=== PATIENT | male | born 1970 | race Two or more races ===

== ENCOUNTER 2017-03-25 23:45 | Inpatient (IN) | payer OTHER ==
[~2017-03-25] VITALS: Ht 180.3 cm; Wt 122.5 kg
[~2017-03-25 23:45] MED LIST: AMARYL; GLUCOPHAGE XR750 MG; LASIX40 MG
[2017-03-26] MEDS ORDERED: [UNRECOGNIZED DRUG - OTHER] (00:34)
[2017-04-02] MEDS ORDERED: LASIX40 MG PO (12:09)
[2017-04-02] MEDS ORDERED: ULTRA FLORA PL1 EACH PO (12:09)
[2017-04-02] MEDS ORDERED: Lantus 1000 UNITS/10 SUBCUTANEO (12:09)
[2017-04-02] MEDS ORDERED: HumaLOG 100 UNIT/1 M SUBCUTANEO (12:09)
[2017-04-02] MEDS ORDERED: CEFDINIR300 MG PO (12:09)
== END 2017-04-02 13:59 | disposition home or self-care (01) | DRG 603 ==
LOC: ER 23:45 → MEDI 03-26 12:12 → SEC-K 03-26 12:12 → MEDI 03-27 12:34
DX: L03.115 Cellulitis of right lower limb (principal); L97.818 Non-pressure chronic ulcer of other part of right lower leg with other specified severity; E11.65 Type 2 diabetes mellitus with hyperglycemia; E66.01 Morbid (severe) obesity due to excess calories; G47.33 Obstructive sleep apnea (adult) (pediatric); E11.22 Type 2 diabetes mellitus with diabetic chronic kidney disease; I12.9 Hypertensive chronic kidney disease with stage 1 through stage 4 chronic kidney disease, or unspecified chronic kidney disease; N18.3 Chronic kidney disease, stage 3 (moderate); S80.811A Abrasion, right lower leg, initial encounter; X58.XXXA Exposure to other specified factors, initial encounter; Y93.89 Activity, other specified; Y92.89 Other specified places as the place of occurrence of the external cause; Y99.8 Other external cause status

== ENCOUNTER 2017-07-03 22:22 | Inpatient (IN) | payer OTHER ==
[~2017-07-03] VITALS: Ht 180.3 cm; Wt 115.7 kg
[~2017-07-03 22:22] MED LIST changes: +ATORVASTATIN CA10 MG PO; +BACTRIM DS TAB1 EACH PO; +CEFDINIR300 MG PO; +CYMBALTA60 MG PO; +HUMALOG100 UNIT/1 SUBCUTANEO; +HumaLOG 100 UNIT/1 M SUBCUTANEO; +INTESTINEX680 M1 PO; +INVOKANA300 MG PO; +LANTUS SOL100 UNIT/1 SUBCUTANEO; +LASIX40 MG PO; +Lantus 1000 UNITS/10 SUBCUTANEO; +METFORMIN HCL500 MG PO; +ULTRA FLORA PL1 EACH PO; +[UNRECOGNIZED DRUG - OTHER]
[2017-07-14] MEDS ORDERED: HUMALOG100 UNIT/1 SUBCUTANEO (13:20)
[2017-07-14] MEDS ORDERED: CYMBALTA60 MG PO (13:20)
[2017-07-14] MEDS ORDERED: INTESTINEX680 M1 PO (13:20)
[2017-07-14] MEDS ORDERED: Lantus 1000 UNITS/10 SUBCUTANEO (13:20)
[2017-07-14] MEDS ORDERED: JARDIANCE25 MG PO (13:20)
[2017-07-14] MEDS ORDERED: LANTUS SOL100 UNIT/1 SUBCUTANEO (13:20)
[2017-07-14] MEDS ORDERED: METRONIDAZ500 MG/100 IV (13:20)
[2017-07-14] MEDS ORDERED: LASIX40 MG PO (13:20)
[2017-07-14] MEDS ORDERED: CEFTRIAXONE2 GM IV (13:20)
[2017-07-14] MEDS ORDERED: ATORVASTATIN CA10 MG PO (13:20)
[2017-07-14] MEDS ORDERED: HumaLOG 100 UNIT/1 M SUBCUTANEO (13:20)
== END 2017-07-14 18:26 | disposition home or self-care (01) | DRG 41 ==
LOC: ER 22:22 → MEDJ 07-04 11:53
PROC: CP1Z1ZZ Planar Nuclear Medicine Imaging of Musculoskeletal System, All using Technetium 99m (Tc-99m) (ICD-10-PCS; 2017-07-04)
PROC: 02HV33Z Insertion of Infusion Device into Superior Vena Cava, Percutaneous Approach (ICD-10-PCS; 2017-07-04)
PROC: 8E0ZXY6 Isolation (ICD-10-PCS; 2017-07-04)
PROC: 0JBQ0ZZ Excision of Right Foot Subcutaneous Tissue and Fascia, Open Approach (ICD-10-PCS; principal; 2017-07-07)
PROC: BQ3 Imaging, Non-Axial Lower Bones, Magnetic Resonance Imaging (MRI) (ICD-10-PCS; 2017-07-08)
DX: E11.42 Type 2 diabetes mellitus with diabetic polyneuropathy (principal); L97.518 Non-pressure chronic ulcer of other part of right foot with other specified severity; E11.621 Type 2 diabetes mellitus with foot ulcer; E11.65 Type 2 diabetes mellitus with hyperglycemia; L03.031 Cellulitis of right toe; E66.01 Morbid (severe) obesity due to excess calories; G47.33 Obstructive sleep apnea (adult) (pediatric); E78.00 Pure hypercholesterolemia, unspecified; E11.22 Type 2 diabetes mellitus with diabetic chronic kidney disease; N18.3 Chronic kidney disease, stage 3 (moderate); Z98.84 Bariatric surgery status; B96.6 Bacteroides fragilis [B. fragilis] as the cause of diseases classified elsewhere
CPT/HCPCS: 73722

== ENCOUNTER 2017-09-02 17:54 | Inpatient (IN) | payer OTHER ==
[~2017-09-02] VITALS: Ht 175.3 cm; Wt 127.0 kg
[~2017-09-02 17:54] MED LIST changes: +CEFTRIAXONE2 GM IV; +JARDIANCE25 MG PO; +METRONIDAZ500 MG/100 IV
[2017-10-13] MEDS ORDERED: LEVAQUIN750 MG PO (12:01)
[2017-10-13] MEDS ORDERED: JARDIANCE25 MG PO (12:01)
[2017-10-13] MEDS ORDERED: INTESTINEX680 M1 PO (12:01)
[2017-10-13] MEDS ORDERED: METFORMIN HCL500 MG PO (12:01)
[2017-10-13] MEDS ORDERED: GABAPENTIN100 MG PO (12:01)
[2017-10-13] MEDS ORDERED: LASIX40 MG PO (12:01)
[2017-10-13] MEDS ORDERED: HUMALOG100 UNIT/1 SUBCUTANEO (12:01)
[2017-10-13] MEDS ORDERED: ATORVASTATIN CA10 MG PO (12:01)
[2017-10-13] MEDS ORDERED: LANTUS SOL100 UNIT/1 SUBCUTANEO (12:01)
[2017-10-13] MEDS ORDERED: NEURONTIN300 MG PO (12:01)
== END 2017-10-13 13:48 | disposition home or self-care (01) | DRG 41 ==
LOC: ER 17:54 → SEC-K 20:13 → MEDI 20:13
PROVIDERS: Specialist
PROC: 0Y6R0Z0 Detachment at Right 2nd Toe, Complete, Open Approach (ICD-10-PCS; principal; 2017-09-03 15:00)
PROC: B54NZZZ Ultrasonography of Left Upper Extremity Veins (ICD-10-PCS; 2017-09-09)
PROC: 05H433Z Insertion of Infusion Device into Left Innominate Vein, Percutaneous Approach (ICD-10-PCS; 2017-09-09)
PROC: B54DZZZ Ultrasonography of Bilateral Lower Extremity Veins (ICD-10-PCS; 2017-09-12)
PROC: B44HZZZ Ultrasonography of Bilateral Lower Extremity Arteries (ICD-10-PCS; 2017-09-12)
PROC: 0JBQ0ZZ Excision of Right Foot Subcutaneous Tissue and Fascia, Open Approach (ICD-10-PCS; 2017-09-16)
DX: E11.42 Type 2 diabetes mellitus with diabetic polyneuropathy (principal); M86.171 Other acute osteomyelitis, right ankle and foot; E11.52 Type 2 diabetes mellitus with diabetic peripheral angiopathy with gangrene; I96 Gangrene, not elsewhere classified; L97.518 Non-pressure chronic ulcer of other part of right foot with other specified severity; E11.69 Type 2 diabetes mellitus with other specified complication; G47.33 Obstructive sleep apnea (adult) (pediatric); E66.01 Morbid (severe) obesity due to excess calories; E78.00 Pure hypercholesterolemia, unspecified; E11.65 Type 2 diabetes mellitus with hyperglycemia; E11.22 Type 2 diabetes mellitus with diabetic chronic kidney disease; N18.3 Chronic kidney disease, stage 3 (moderate); I12.9 Hypertensive chronic kidney disease with stage 1 through stage 4 chronic kidney disease, or unspecified chronic kidney disease; E11.621 Type 2 diabetes mellitus with foot ulcer; B95.1 Streptococcus, group B, as the cause of diseases classified elsewhere; B95.61 Methicillin susceptible Staphylococcus aureus infection as the cause of diseases classified elsewhere; I80.8 Phlebitis and thrombophlebitis of other sites; I87.2 Venous insufficiency (chronic) (peripheral)

== ENCOUNTER 2018-03-27 19:16 | Inpatient (IN) | payer OTHER ==
[~2018-03-27] VITALS: Ht 180.3 cm; Wt 5.0 kg
[~2018-03-27 19:16] MED LIST changes: +GABAPENTIN100 MG PO; +LEVAQUIN750 MG PO; +NEURONTIN300 MG PO
--- NOTE | 2018-03-27 19:38 | NUR ---
SE LLAMA PTE PARA S/V Y NO RESPONDE.
[2018-03-27] MEDS ORDERED: FORTAMET1000 MG (19:50)
--- NOTE | 2018-03-27 19:51 | NUR ---
SE RECIBE PTE EL CUAL LLEGA ER POR REFERIDO MEDICO DE DR. MYRNA GONZALEZ, YA QUE PTE PRESENTA CELLULITIS EN PIERNA IZQ LA MISMA SE ENCUENTRA GAURAV, TIBIA AL TACTO CON SECRECIONES.
[2018-04-20] MEDS ORDERED: CLOTRIMAZOLE15 GM TOP (12:09)
[2018-04-20] MEDS ORDERED: METFORMIN HCL1000 MG PO (12:09)
[2018-04-20] MEDS ORDERED: INTESTINEX680 M1 PO (12:09)
[2018-04-20] MEDS ORDERED: GABAPENTIN100 MG PO (12:09)
[2018-04-20] MEDS ORDERED: LASIX40 MG PO (12:09)
[2018-04-20] MEDS ORDERED: JARDIANCE25 MG PO (12:09)
[2018-04-20] MEDS ORDERED: ATORVASTATIN CA10 MG PO (12:09)
[2018-04-20] MEDS ORDERED: NEURONTIN300 MG PO (12:09)
[2018-04-20] MEDS ORDERED: LOSARTAN POTASS25 MG PO (12:09)
== END 2018-04-21 16:12 | disposition home health service (06) | DRG 623 ==
LOC: ER 19:16 → MEDI 03-28 15:09 → MEDJ 04-16 21:17
PROVIDERS: ADMIT Internal Medicine Geriatric Medicine
PROC: BQ3MZZZ Magnetic Resonance Imaging (MRI) of Left Foot (ICD-10-PCS; 2018-03-29)
PROC: B54DZZZ Ultrasonography of Bilateral Lower Extremity Veins (ICD-10-PCS; 2018-03-29)
PROC: 02HV33Z Insertion of Infusion Device into Superior Vena Cava, Percutaneous Approach (ICD-10-PCS; 2018-03-29)
PROC: 0JBR0ZZ Excision of Left Foot Subcutaneous Tissue and Fascia, Open Approach (ICD-10-PCS; principal; 2018-04-01)
PROC: B34JZZZ Ultrasonography of Left Upper Extremity Arteries (ICD-10-PCS; 2018-04-04)
DX: E11.621 Type 2 diabetes mellitus with foot ulcer (principal); M86.171 Other acute osteomyelitis, right ankle and foot; B37.89 Other sites of candidiasis; E11.628 Type 2 diabetes mellitus with other skin complications; E11.65 Type 2 diabetes mellitus with hyperglycemia; L03.032 Cellulitis of left toe; Z79.4 Long term (current) use of insulin; E11.40 Type 2 diabetes mellitus with diabetic neuropathy, unspecified; I82.813 Embolism and thrombosis of superficial veins of lower extremities, bilateral; Z79.01 Long term (current) use of anticoagulants; E78.00 Pure hypercholesterolemia, unspecified; E11.22 Type 2 diabetes mellitus with diabetic chronic kidney disease; I12.9 Hypertensive chronic kidney disease with stage 1 through stage 4 chronic kidney disease, or unspecified chronic kidney disease; N18.3 Chronic kidney disease, stage 3 (moderate); N17.8 Other acute kidney failure; G47.33 Obstructive sleep apnea (adult) (pediatric); E66.01 Morbid (severe) obesity due to excess calories; Z99.81 Dependence on supplemental oxygen; Z98.84 Bariatric surgery status; L97.521 Non-pressure chronic ulcer of other part of left foot limited to breakdown of skin; I11.9 Hypertensive heart disease without heart failure

== ENCOUNTER 2018-05-07 20:15 | Emergency (ER) | payer OTHER ==
[~2018-05-07] VITALS: Ht 180.3 cm; Wt 117.9 kg
[~2018-05-07 20:15] MED LIST changes: +CLOTRIMAZOLE15 GM TOP; +FORTAMET1000 MG; +LOSARTAN POTASS25 MG PO; +METFORMIN HCL1000 MG PO
== END 2018-05-07 21:39 | disposition home or self-care (01) ==
LOC: ER 20:15
DX: T82.598A Other mechanical complication of other cardiac and vascular devices and implants, initial encounter (principal)

== ENCOUNTER 2018-05-08 11:27 | Emergency (ER) | payer OTHER ==
[~2018-05-08] VITALS: Ht 180.3 cm; Wt 117.9 kg
== END 2018-05-08 13:24 | disposition home or self-care (01) ==
LOC: ER 11:27
DX: T82.598A Other mechanical complication of other cardiac and vascular devices and implants, initial encounter (principal)

== ENCOUNTER 2019-02-22 16:14 | Inpatient (IN) | payer OTHER ==
[~2019-02-22] VITALS: Ht 180.3 cm; Wt 117.9 kg
--- NOTE | 2019-02-22 16:29 | NUR ---
SE RECIBE PTE AMBULANDO CON DIFICULTAD, ALERTA Y ORIENTADO X3 QUIEN ES REFERIDO POR DR. NORRIS GONZALEZ POR ULCERA EN PIE L+. SE UBICA A PTE EN SECCION K.
[2019-03-12] MEDS ORDERED: CLOTRIMAZOLE15 GM TOP (16:32)
[2019-03-12] MEDS ORDERED: INTESTINEX680 M1 PO (16:32)
[2019-03-12] MEDS ORDERED: ATORVASTATIN CA10 MG PO (16:32)
[2019-03-12] MEDS ORDERED: GABAPENTIN800 MG PO (16:32)
[2019-03-12] MEDS ORDERED: JARDIANCE25 MG PO (16:32)
[2019-03-12] MEDS ORDERED: METFORMIN HCL1000 MG PO (16:32)
[2019-03-12] MEDS ORDERED: GABAPENTIN300 MG PO (16:32)
[2019-03-12] MEDS ORDERED: HUMALOG100 UNIT/1 SUBCUTANEO (16:32)
[2019-03-12] MEDS ORDERED: LASIX40 MG PO (16:32)
[2019-03-12] MEDS ORDERED: LOSARTAN POTASS25 MG PO (16:32)
== END 2019-03-17 20:03 | disposition home or self-care (01) | DRG 623 ==
LOC: ER 16:14 → SEC-K 18:33 → MEDJ 19:13
PROVIDERS: ADMIT Internal Medicine Geriatric Medicine
PROC: BQ3MZZZ Magnetic Resonance Imaging (MRI) of Left Foot (ICD-10-PCS; 2019-02-22)
PROC: 0JBR0ZZ Excision of Left Foot Subcutaneous Tissue and Fascia, Open Approach (ICD-10-PCS; principal; 2019-02-23)
PROC: 05HB33Z Insertion of Infusion Device into Right Basilic Vein, Percutaneous Approach (ICD-10-PCS; 2019-02-23)
PROC: 8E0ZXY6 Isolation (ICD-10-PCS; 2019-02-24)
PROC: B246ZZZ Ultrasonography of Right and Left Heart (ICD-10-PCS; 2019-02-26)
PROC: 0JBR0ZZ Excision of Left Foot Subcutaneous Tissue and Fascia, Open Approach (ICD-10-PCS; 2019-03-03)
PROC: 0JBR0ZZ Excision of Left Foot Subcutaneous Tissue and Fascia, Open Approach (ICD-10-PCS; 2019-03-10)
DX: E11.621 Type 2 diabetes mellitus with foot ulcer (principal); L97.528 Non-pressure chronic ulcer of other part of left foot with other specified severity; L03.116 Cellulitis of left lower limb; L02.612 Cutaneous abscess of left foot; M86.8X7 Other osteomyelitis, ankle and foot; E11.42 Type 2 diabetes mellitus with diabetic polyneuropathy; E66.01 Morbid (severe) obesity due to excess calories; E11.65 Type 2 diabetes mellitus with hyperglycemia; G47.33 Obstructive sleep apnea (adult) (pediatric); Z89.422 Acquired absence of other left toe(s); I13.10 Hypertensive heart and chronic kidney disease without heart failure, with stage 1 through stage 4 chronic kidney disease, or unspecified chronic kidney disease; N18.3 Chronic kidney disease, stage 3 (moderate); N17.8 Other acute kidney failure; D63.8 Anemia in other chronic diseases classified elsewhere

== ENCOUNTER 2019-11-22 09:41 | Outpatient (CLI) | payer OTHER ==
[~2019-11-22 09:41] MED LIST changes: +GABAPENTIN300 MG PO; +GABAPENTIN800 MG PO
== END 2019-11-22 09:53 | disposition home or self-care (01) ==
LOC: RAD 09:41
PROVIDERS: ATTEND Specialist
DX: M86.8X7 Other osteomyelitis, ankle and foot (principal); E10.649 Type 1 diabetes mellitus with hypoglycemia without coma

== ENCOUNTER 2020-01-04 18:10 | Inpatient (IN) | payer OTHER ==
[~2020-01-04] VITALS: Ht 180.3 cm; Wt 140.4 kg
[2020-01-06] MEDS ORDERED: JARDIANCE25 MG PO (13:21)
[2020-01-06] MEDS ORDERED: ITCH RELIEF15 G1 TOP (13:21)
[2020-01-06] MEDS ORDERED: OXYC1TAB9 PO (13:21)
[2020-01-06] MEDS ORDERED: LASIX40 MG PO (13:21)
[2020-01-06] MEDS ORDERED: HUMALOG100 UNIT/1 SUBCUTANEO (13:21)
[2020-01-06] MEDS ORDERED: LANTUS SOL100 UNIT/1 SUBCUTANEO (13:21)
[2020-01-06] MEDS ORDERED: GABAPENTIN300 MG PO (13:21)
[2020-01-06] MEDS ORDERED: GABAPENTIN800 MG PO (13:21)
[2020-01-06] MEDS ORDERED: CIPRO500 MG PO (13:21)
[2020-01-06] MEDS ORDERED: LOSARTAN POTASS25 MG PO (13:21)
[2020-01-06] MEDS ORDERED: INTESTINEX680 M1 PO (13:21)
[2020-01-06] MEDS ORDERED: METFORMIN HCL1000 MG PO (13:21)
[2020-01-06] MEDS ORDERED: ATORVASTATIN CA10 MG PO (13:21)
== END 2020-01-06 16:07 | disposition home or self-care (01) | DRG 639 ==
LOC: ER 18:10 → SURH 22:22
PROVIDERS: ADMIT Internal Medicine Geriatric Medicine; ATTEND Internal Medicine Geriatric Medicine
PROC: BQ3MZZZ Magnetic Resonance Imaging (MRI) of Left Foot (ICD-10-PCS; principal; 2020-01-05)
DX: E11.621 Type 2 diabetes mellitus with foot ulcer (principal); E11.22 Type 2 diabetes mellitus with diabetic chronic kidney disease; E11.40 Type 2 diabetes mellitus with diabetic neuropathy, unspecified; E11.65 Type 2 diabetes mellitus with hyperglycemia; E78.00 Pure hypercholesterolemia, unspecified; E66.01 Morbid (severe) obesity due to excess calories; I11.9 Hypertensive heart disease without heart failure; L97.519 Non-pressure chronic ulcer of other part of right foot with unspecified severity; I13.10 Hypertensive heart and chronic kidney disease without heart failure, with stage 1 through stage 4 chronic kidney disease, or unspecified chronic kidney disease; N17.8 Other acute kidney failure; N18.30 Chronic kidney disease, stage 3 unspecified; G47.33 Obstructive sleep apnea (adult) (pediatric); S99.822A Other specified injuries of left foot, initial encounter; Z20.828 Contact with and (suspected) exposure to other viral communicable diseases; Z89.421 Acquired absence of other right toe(s); Z79.4 Long term (current) use of insulin

== ENCOUNTER 2020-02-08 11:05 | Emergency (ER) | payer OTHER ==
[~2020-02-08] VITALS: Ht 180.3 cm; Wt 141.5 kg
[~2020-02-08 11:05] MED LIST changes: +CIPRO500 MG PO; +ITCH RELIEF15 G1 TOP; +OXYC1TAB9 PO
[2020-02-08] MEDS ORDERED: CHILDREN'S ASPI81 MG (11:18)
[2020-02-08] MEDS ORDERED: FARXIGA10 MG (11:19)
== END 2020-02-08 17:52 | disposition home or self-care (01) ==
LOC: ER 11:05 → CPU-OBS 11:28 → ER 17:52
DX: R07.89 Other chest pain (principal)
CPT/HCPCS: G0378; G0379; 93005

== ENCOUNTER 2020-09-02 08:18 | Outpatient (CLI) | payer OTHER ==
[~2020-09-02 08:18] MED LIST changes: +CHILDREN'S ASPI81 MG; +DICLOFENAC POTA50 MG PO; +FARXIGA10 MG; +NORFLEX100MG PO
== END 2020-09-02 08:24 | disposition home or self-care (01) ==
LOC: RAD 08:18
DX: R10.2 Pelvic and perineal pain (principal); M25.78 Osteophyte, vertebrae

== ENCOUNTER 2020-09-30 12:14 | Inpatient (IN) | payer OTHER ==
[~2020-09-30] VITALS: Ht 180.3 cm; Wt 158.8 kg
[2020-09-30] MEDS ORDERED: CIPRO500 MG (12:51)
[2020-09-30] MEDS ORDERED: TRULICITY0.75 MG/0. (12:53)
[2020-10-14] MEDS ORDERED: AMOX-CLAV 875-1 EAC1 PO (14:04)
[2020-10-14] MEDS ORDERED: INTESTINEX680 M1 PO (14:05)
[2020-10-14] MEDS ORDERED: ATORVASTATIN CA10 MG PO (14:05)
[2020-10-14] MEDS ORDERED: LOSARTAN POTASS50 MG PO (14:06)
== END 2020-10-14 16:30 | disposition home or self-care (01) | DRG 638 ==
LOC: ER 12:14 → SURG 17:45 → SEC-K 17:45 → SURG 17:50 → MEDI 10-02 21:08
PROVIDERS: ADMIT Internal Medicine Geriatric Medicine; ATTEND Internal Medicine Geriatric Medicine
PROC: 02HV33Z Insertion of Infusion Device into Superior Vena Cava, Percutaneous Approach (ICD-10-PCS; principal; 2020-10-01)
PROC: 3E0F7SF Introduction of Other Gas into Respiratory Tract, Via Natural or Artificial Opening (ICD-10-PCS; 2020-10-03)
PROC: 0JDQ3ZZ Extraction of Right Foot Subcutaneous Tissue and Fascia, Percutaneous Approach (ICD-10-PCS; 2020-10-09)
DX: E11.628 Type 2 diabetes mellitus with other skin complications (principal); L03.115 Cellulitis of right lower limb; L97.518 Non-pressure chronic ulcer of other part of right foot with other specified severity; N17.8 Other acute kidney failure; L03.031 Cellulitis of right toe; E11.65 Type 2 diabetes mellitus with hyperglycemia; E11.40 Type 2 diabetes mellitus with diabetic neuropathy, unspecified; Z91.14 Patient's other noncompliance with medication regimen; E11.22 Type 2 diabetes mellitus with diabetic chronic kidney disease; I12.9 Hypertensive chronic kidney disease with stage 1 through stage 4 chronic kidney disease, or unspecified chronic kidney disease; N18.31 Chronic kidney disease, stage 3a; E11.621 Type 2 diabetes mellitus with foot ulcer; Z79.84 Long term (current) use of oral hypoglycemic drugs; Z20.822 Contact with and (suspected) exposure to COVID-19; Z89.421 Acquired absence of other right toe(s); B95.61 Methicillin susceptible Staphylococcus aureus infection as the cause of diseases classified elsewhere

== ENCOUNTER 2020-12-05 10:24 | Day surgery (SDC) | payer OTHER ==
[~2020-12-05 10:24] MED LIST changes: +AMOX-CLAV 875-1 EAC1 PO; +CIPRO500 MG; +LOSARTAN POTASS50 MG PO; +TRULICITY0.75 MG/0.
[2020-12-05] MEDS ORDERED: BACTRIM DS TAB1 EACH PO (16:21)
[2020-12-05] MEDS ORDERED: PERCOCET 5-3251 EACH PO (16:22)
== END 2020-12-05 22:50 | disposition home or self-care (01) ==
LOC: CIR.AMB 10:24
PROVIDERS: ATTEND Surgery
DX: N52.8 Other male erectile dysfunction (principal); Z20.822 Contact with and (suspected) exposure to COVID-19
CPT/HCPCS: 54405; C1813

== ENCOUNTER 2021-05-28 16:47 | Emergency (ER) | payer OTHER ==
[~2021-05-28] VITALS: Ht 180.3 cm; Wt 134.7 kg
[~2021-05-28 16:47] MED LIST changes: +PERCOCET 5-3251 EACH PO
[2021-05-28] MEDS ORDERED: SIMVASTATIN5 MG PO (17:01)
[2021-05-29] MEDS ORDERED: LYRICA50 MG PO (12:56)
[2021-05-29] MEDS ORDERED: CYMBALTA60 MG PO (12:57)
== END 2021-05-28 23:13 | disposition left against medical advice (07) ==
LOC: ER 16:47
DX: S99.822A Other specified injuries of left foot, initial encounter (principal); W22.03XA Walked into furniture, initial encounter; Y93.9 Activity, unspecified; Y92.013 Bedroom of single-family (private) house as the place of occurrence of the external cause; Y99.9 Unspecified external cause status; Z88.1 Allergy status to other antibiotic agents

== ENCOUNTER 2021-05-29 12:38 | Emergency (ER) | payer OTHER ==
[~2021-05-29] VITALS: Ht 154.9 cm; Wt 133.4 kg
[~2021-05-29 12:38] MED LIST changes: +SIMVASTATIN5 MG PO
[2021-05-29] MEDS ORDERED: LYRICA50 MG PO (12:56)
[2021-05-29] MEDS ORDERED: CYMBALTA60 MG PO (12:57)
== END 2021-05-29 19:06 | disposition home or self-care (01) ==
LOC: ER 12:38
DX: L03.116 Cellulitis of left lower limb (principal); Z88.1 Allergy status to other antibiotic agents; E11.9 Type 2 diabetes mellitus without complications

== ENCOUNTER 2021-06-12 08:00 | Outpatient (CLI) | payer OTHER ==
[~2021-06-12 08:00] MED LIST changes: +LYRICA50 MG PO
== END 2021-06-12 08:30 | disposition home or self-care (01) ==
LOC: PPH VACUNA 08:00
PROVIDERS: ATTEND Emergency Medicine Pediatric Emergency Medicine
DX: Z23 Encounter for immunization (principal)

== ENCOUNTER 2021-06-13 16:46 | Inpatient (IN) | payer OTHER ==
[~2021-06-13] VITALS: Ht 152.4 cm; Wt 131.1 kg
--- NOTE | 2021-06-13 17:17 | NUR ---
PATIENT IS RECIEVED SAYING THAT HE WILL BE ADMITTED FOR A LEFT BIG TOE ULCER. LEFT TOE IS BANDAGED AT THE MOMENT AND SCANTLY BLEEDING. PATIENT SAYS THAT HIS INTERNAL MEDICINE DOCTOR LAMINE WILL ADMIT HIM SHORTLY.
--- NOTE | 2021-06-13 19:19 | NUR ---
SE ORIENTA AL PACIENTE SOBRE EL TX. EXTRAEN MUESTRAS DE DEVYN BAJO MEDIDAS ASEPTICAS SE ROTULAN Y ENVIAN AL LABORATORIO. SE CANALIZA Y ADMINISTRAN MEDICAMENTOS TIERRA ORDEN MEDICA.
[2021-06-14] MEDS ORDERED: TAMSULOSIN HCL0.4 MG (11:38)
[2021-06-14] MEDS ORDERED: UROXATRAL10 MG (11:38)
[2021-06-14] MEDS ORDERED: METFORMIN HCL1000 M3 (11:39)
[2021-07-26] MEDS ORDERED: ATORVASTATIN CA10 MG PO (17:10)
[2021-07-26] MEDS ORDERED: INTEGRA F CAPS1 EACH PO (17:10)
[2021-07-26] MEDS ORDERED: LOSARTAN POTASS50 MG PO (17:10)
[2021-07-26] MEDS ORDERED: CHILDREN'S ASPI81 MG PO (17:11)
[2021-07-26] MEDS ORDERED: CYMBALTA60 MG PO (17:12)
[2021-07-26] MEDS ORDERED: OXYC1TAB9 PO (17:14)
[2021-07-26] MEDS ORDERED: LASIX40 MG PO (17:15)
[2021-07-26] MEDS ORDERED: LYRICA50 MG PO (17:16)
[2021-07-26] MEDS ORDERED: INTESTINEX680 M1 PO (17:17)
[2021-07-26] MEDS ORDERED: PANTOPRAZOLE SO40 MG PO (17:17)
[2021-07-26] MEDS ORDERED: LANTUS SOL100 UNIT/1 SUBCUTANEO (17:17)
[2021-07-26] MEDS ORDERED: FOLIC ACID1 MG PO (17:19)
[2021-07-26] MEDS ORDERED: LIDODERM1 EACH TOP (17:19)
[2021-07-26] MEDS ORDERED: UROXATRAL10 MG PO (17:20)
[2021-07-26] MEDS ORDERED: TAMSULOSIN HCL0.4 MG PO (17:20)
[2021-07-26] MEDS ORDERED: FARXIGA10 MG PO (17:21)
[2021-07-26] MEDS ORDERED: HUMALOG100 UNIT/1 SUBCUTANEO (17:21)
[2021-07-26] MEDS ORDERED: TRULICITY0.75 MG/0. SUBCUTANEO (17:25)
== END 2021-07-26 19:28 | disposition home or self-care (01) | DRG 256 ==
LOC: ER 16:46 → MEDJ 21:12
PROVIDERS: Specialist; ADMIT Internal Medicine Geriatric Medicine; ATTEND Internal Medicine Geriatric Medicine
PROC: 8E0ZXY6 Isolation (ICD-10-PCS; 2021-06-15)
PROC: 0Y6Q0Z3 Detachment at Left 1st Toe, Low, Open Approach (ICD-10-PCS; principal; 2021-06-18 15:15)
PROC: 0HDMXZZ Extraction of Right Foot Skin, External Approach (ICD-10-PCS; 2021-07-18)
PROC: 0HDNXZZ Extraction of Left Foot Skin, External Approach (ICD-10-PCS; 2021-07-25)
DX: I96 Gangrene, not elsewhere classified (principal); M86.672 Other chronic osteomyelitis, left ankle and foot; N17.8 Other acute kidney failure; Z68.41 Body mass index [BMI] 40.0-44.9, adult; L97.524 Non-pressure chronic ulcer of other part of left foot with necrosis of bone; E11.52 Type 2 diabetes mellitus with diabetic peripheral angiopathy with gangrene; E11.621 Type 2 diabetes mellitus with foot ulcer; E11.69 Type 2 diabetes mellitus with other specified complication; L03.032 Cellulitis of left toe; E11.65 Type 2 diabetes mellitus with hyperglycemia; E66.01 Morbid (severe) obesity due to excess calories; E11.22 Type 2 diabetes mellitus with diabetic chronic kidney disease; I12.9 Hypertensive chronic kidney disease with stage 1 through stage 4 chronic kidney disease, or unspecified chronic kidney disease; N18.9 Chronic kidney disease, unspecified; E11.40 Type 2 diabetes mellitus with diabetic neuropathy, unspecified; G47.33 Obstructive sleep apnea (adult) (pediatric); D63.8 Anemia in other chronic diseases classified elsewhere; B95.1 Streptococcus, group B, as the cause of diseases classified elsewhere; B95.62 Methicillin resistant Staphylococcus aureus infection as the cause of diseases classified elsewhere; Z79.4 Long term (current) use of insulin; F43.20 Adjustment disorder, unspecified
CPT/HCPCS: 73725

== ENCOUNTER 2021-09-24 12:00 | Emergency (ER) | payer OTHER ==
[~2021-09-24] VITALS: Ht 180.3 cm; Wt 127.0 kg
[~2021-09-24 12:00] MED LIST changes: +CHILDREN'S ASPI81 MG PO; +FARXIGA10 MG PO; +FOLIC ACID1 MG PO; +INTEGRA F CAPS1 EACH PO; +LIDODERM1 EACH TOP; +METFORMIN HCL1000 M3; +PANTOPRAZOLE SO40 MG PO; +TAMSULOSIN HCL0.4 MG; +TAMSULOSIN HCL0.4 MG PO; +TRULICITY0.75 MG/0. SUBCUTANEO; +UROXATRAL10 MG; +UROXATRAL10 MG PO
== END 2021-09-24 19:05 | disposition home or self-care (01) ==
LOC: ER 12:00
DX: R42 Dizziness and giddiness (principal); R51.9 Headache, unspecified; Z20.828 Contact with and (suspected) exposure to other viral communicable diseases

== ENCOUNTER 2021-10-08 16:11 | Inpatient (IN) | payer OTHER ==
[~2021-10-08] VITALS: Ht 180.3 cm; Wt 127.0 kg
[~2021-10-08 16:11] MED LIST changes: -METFORMIN HCL1000 M3; +METFORMIN HCL1000 M3 PO
[2021-10-31] MEDS ORDERED: CHILDREN'S ASPI81 MG PO ×2 (14:30)
[2021-10-31] MEDS ORDERED: LIDODERM1 EACH TOP ×2 (14:30)
[2021-10-31] MEDS ORDERED: LOSARTAN POTASS50 MG PO ×2 (14:30)
[2021-10-31] MEDS ORDERED: TRULICITY0.75 MG/0. SUBCUTANEO ×2 (14:30)
[2021-10-31] MEDS ORDERED: HUMALOG100 UNIT/1 SUBCUTANEO ×2 (14:30)
[2021-10-31] MEDS ORDERED: LASIX40 MG PO ×2 (14:30)
[2021-10-31] MEDS ORDERED: ABANEU-SL TABL1 EACH SL ×2 (14:30)
[2021-10-31] MEDS ORDERED: ATORVASTATIN CA10 MG PO ×2 (14:30)
[2021-10-31] MEDS ORDERED: levofloxacin PO ×2 (14:30)
[2021-10-31] MEDS ORDERED: LANTUS SOL100 UNIT/1 SL ×2 (14:30)
[2021-10-31] MEDS ORDERED: INTESTINEX680 M1 PO ×2 (14:30)
[2021-10-31] MEDS ORDERED: CYMBALTA60 MG PO ×2 (14:30)
[2021-10-31] MEDS ORDERED: PANTOPRAZOLE SO40 MG PO ×2 (14:30)
[2021-10-31] MEDS ORDERED: FARXIGA10 MG PO ×2 (14:30)
[2021-10-31] MEDS ORDERED: INTEGRA F CAPS1 EACH PO ×2 (14:30)
[2021-10-31] MEDS ORDERED: OXYC1TAB9 PO ×2 (14:30)
[2021-10-31] MEDS ORDERED: LYRICA50 MG PO ×2 (14:30)
[2021-10-31] MEDS ORDERED: FOLIC ACID1 MG PO ×2 (14:30)
== END 2021-10-31 15:50 | disposition home or self-care (01) | DRG 638 ==
LOC: ER 16:11 → SEC-K 21:40 → MEDI 21:40
PROVIDERS: ADMIT Internal Medicine Geriatric Medicine; ATTEND Internal Medicine Geriatric Medicine
PROC: 0H9NXZZ Drainage of Left Foot Skin, External Approach (ICD-10-PCS; principal; 2021-10-09)
PROC: BQ3FZZZ Magnetic Resonance Imaging (MRI) of Left Lower Leg (ICD-10-PCS; 2021-10-09)
PROC: 02HV33Z Insertion of Infusion Device into Superior Vena Cava, Percutaneous Approach (ICD-10-PCS; 2021-10-09)
PROC: 0H9NXZZ Drainage of Left Foot Skin, External Approach (ICD-10-PCS; 2021-10-17)
PROC: 0H9NXZZ Drainage of Left Foot Skin, External Approach (ICD-10-PCS; 2021-10-31)
DX: E11.621 Type 2 diabetes mellitus with foot ulcer (principal); L97.528 Non-pressure chronic ulcer of other part of left foot with other specified severity; L03.116 Cellulitis of left lower limb; L08.9 Local infection of the skin and subcutaneous tissue, unspecified; N17.8 Other acute kidney failure; E11.51 Type 2 diabetes mellitus with diabetic peripheral angiopathy without gangrene; B96.1 Klebsiella pneumoniae [K. pneumoniae] as the cause of diseases classified elsewhere; Z79.4 Long term (current) use of insulin; I12.9 Hypertensive chronic kidney disease with stage 1 through stage 4 chronic kidney disease, or unspecified chronic kidney disease; E11.22 Type 2 diabetes mellitus with diabetic chronic kidney disease; N18.9 Chronic kidney disease, unspecified; E78.5 Hyperlipidemia, unspecified; E66.01 Morbid (severe) obesity due to excess calories; Z68.39 Body mass index [BMI] 39.0-39.9, adult; I11.9 Hypertensive heart disease without heart failure; G47.33 Obstructive sleep apnea (adult) (pediatric)

== ENCOUNTER 2021-11-02 13:26 | Outpatient (CLI) | payer OTHER ==
[~2021-11-02 13:26] MED LIST changes: +ABANEU-SL TABL1 EACH SL; +LANTUS SOL100 UNIT/1 SL; +levofloxacin PO
== END 2021-11-02 13:31 | disposition home or self-care (01) ==
LOC: RAD 13:26
PROVIDERS: ATTEND Specialist
DX: M86.9 Osteomyelitis, unspecified (principal)

== ENCOUNTER 2022-02-18 09:46 | Inpatient (IN) | payer OTHER ==
[~2022-02-18] VITALS: Ht 180.3 cm; Wt 122.5 kg
--- NOTE | 2022-02-18 11:00 | NUR ---
PTE VERBALIZA DOLOR EN [place] DEDO #2.
[2022-04-02] MEDS ORDERED: PRE PROTEIN1 EACH PO (14:46)
[2022-04-02] MEDS ORDERED: LOSARTAN POTAS100 MG PO (14:46)
[2022-04-02] MEDS ORDERED: OXYC1TAB9 PO (14:46)
[2022-04-02] MEDS ORDERED: UROXATRAL10 MG PO (14:46)
[2022-04-02] MEDS ORDERED: FARXIGA10 MG PO (14:46)
[2022-04-02] MEDS ORDERED: LASIX40 MG PO (14:46)
[2022-04-02] MEDS ORDERED: LANTUS SOL100 UNIT/1 SL (14:46)
[2022-04-02] MEDS ORDERED: ABANEU-SL TABL1 EACH SL (14:46)
[2022-04-02] MEDS ORDERED: FOLIC ACID1 MG PO (14:46)
[2022-04-02] MEDS ORDERED: PANTOPRAZOLE SO40 MG PO (14:46)
[2022-04-02] MEDS ORDERED: CYMBALTA60 MG PO (14:46)
[2022-04-02] MEDS ORDERED: HUMALOG100 UNIT/1 SUBCUTANEO (14:46)
[2022-04-02] MEDS ORDERED: CHILDREN'S ASPI81 MG PO (14:46)
[2022-04-02] MEDS ORDERED: INTEGRA F CAPS1 EACH PO (14:46)
[2022-04-02] MEDS ORDERED: METOLAZONE2.5 MG PO (14:46)
[2022-04-02] MEDS ORDERED: ATORVASTATIN CA10 MG PO (14:46)
[2022-04-02] MEDS ORDERED: LYRICA50 MG PO (14:46)
[2022-04-02] MEDS ORDERED: METFORMIN HCL1000 M3 PO (14:46)
[2022-04-02] MEDS ORDERED: OZEMPIC2 MG/0.75 SUBCUTANEO (14:46)
== END 2022-04-02 15:16 | disposition home or self-care (01) | DRG 617 ==
LOC: ER 09:46 → MEDJ 13:29
PROVIDERS: Specialist; ADMIT Internal Medicine Geriatric Medicine; ATTEND Internal Medicine Geriatric Medicine
PROC: 05HY33Z Insertion of Infusion Device into Upper Vein, Percutaneous Approach (ICD-10-PCS; 2022-02-18)
PROC: 8E0ZXY6 Isolation (ICD-10-PCS; 2022-02-20)
PROC: 0Y6S0Z0 Detachment at Left 2nd Toe, Complete, Open Approach (ICD-10-PCS; principal; 2022-02-21 07:00)
PROC: 0HDMXZZ Extraction of Right Foot Skin, External Approach (ICD-10-PCS; 2022-02-27)
PROC: 0JDR0ZZ Extraction of Left Foot Subcutaneous Tissue and Fascia, Open Approach (ICD-10-PCS; 2022-03-07)
PROC: 0HDMXZZ Extraction of Right Foot Skin, External Approach (ICD-10-PCS; 2022-03-07)
PROC: 0JDR0ZZ Extraction of Left Foot Subcutaneous Tissue and Fascia, Open Approach (ICD-10-PCS; 2022-03-13)
PROC: B54DZZZ Ultrasonography of Bilateral Lower Extremity Veins (ICD-10-PCS; 2022-03-13)
PROC: 0JDR0ZZ Extraction of Left Foot Subcutaneous Tissue and Fascia, Open Approach (ICD-10-PCS; 2022-03-27)
PROC: 0HDMXZZ Extraction of Right Foot Skin, External Approach (ICD-10-PCS; 2022-03-27)
PROC: BQ3MZZZ Magnetic Resonance Imaging (MRI) of Left Foot (ICD-10-PCS; 2022-03-27)
PROC: BQ3LZZZ Magnetic Resonance Imaging (MRI) of Right Foot (ICD-10-PCS; 2022-03-27)
PROC: CP2 Nuclear Medicine, Musculoskeletal System, Tomographic (Tomo) Nuclear Medicine Imaging (ICD-10-PCS; 2022-03-27)
PROC: BQ3FZZZ Magnetic Resonance Imaging (MRI) of Left Lower Leg (ICD-10-PCS; 2022-03-29)
DX: E11.621 Type 2 diabetes mellitus with foot ulcer (principal); E11.52 Type 2 diabetes mellitus with diabetic peripheral angiopathy with gangrene; I96 Gangrene, not elsewhere classified; M86.8X7 Other osteomyelitis, ankle and foot; L97.518 Non-pressure chronic ulcer of other part of right foot with other specified severity; L97.528 Non-pressure chronic ulcer of other part of left foot with other specified severity; E11.40 Type 2 diabetes mellitus with diabetic neuropathy, unspecified; E11.65 Type 2 diabetes mellitus with hyperglycemia; S91.115A Laceration without foreign body of left lesser toe(s) without damage to nail, initial encounter; B95.62 Methicillin resistant Staphylococcus aureus infection as the cause of diseases classified elsewhere; D63.8 Anemia in other chronic diseases classified elsewhere; B96.89 Other specified bacterial agents as the cause of diseases classified elsewhere; E66.01 Morbid (severe) obesity due to excess calories; Z68.37 Body mass index [BMI] 37.0-37.9, adult; I11.9 Hypertensive heart disease without heart failure; G47.33 Obstructive sleep apnea (adult) (pediatric); E78.5 Hyperlipidemia, unspecified; Z79.4 Long term (current) use of insulin
CPT/HCPCS: 73221

== ENCOUNTER 2022-07-05 15:23 | Inpatient (IN) | payer OTHER ==
[~2022-07-05] VITALS: Ht 180.3 cm; Wt 117.9 kg
[~2022-07-05 15:23] MED LIST changes: +LOSARTAN POTAS100 MG PO; +METOLAZONE2.5 MG PO; +OZEMPIC2 MG/0.75 SUBCUTANEO; +PRE PROTEIN1 EACH PO
--- NOTE | 2022-07-05 15:43 | NUR ---
PACIENTE ALERTA Y ORIENTDA X [address] NORRIS GONZALEZ LO ENVIO A CAMRON DE EMERGENCIAS POR QUE SE ENTERRO UN [place] EN EL PIE TIGIST Y TIENE LO QUE PARECE SER MARCELINO CELULITIS.
--- NOTE | 2022-07-05 17:34 | NUR ---
PACIENTE EVALUADO POR LA ABDOUL.MALIN QUIEN ORDENA TRATAMIENTO MEDICO. SE REALIZAN MUESTRAS BAJO MEDIDAS ASEPTICAS.
[2022-07-17] MEDS ORDERED: OXYC1TAB9 PO (13:37)
[2022-07-17] MEDS ORDERED: LASIX40 MG PO (13:38)
[2022-07-17] MEDS ORDERED: HUMALOG100 UNIT/1 SUBCUTANEO (13:38)
[2022-07-17] MEDS ORDERED: ATORVASTATIN CA10 MG PO (13:38)
[2022-07-17] MEDS ORDERED: LYRICA50 MG PO (13:38)
[2022-07-17] MEDS ORDERED: UROXATRAL10 MG PO (13:38)
[2022-07-17] MEDS ORDERED: FARXIGA10 MG PO (13:38)
[2022-07-17] MEDS ORDERED: LANTUS SOL100 UNIT/1 SL (13:38)
[2022-07-17] MEDS ORDERED: OZEMPIC2 MG/0.75 SUBCUTANEO (13:38)
[2022-07-17] MEDS ORDERED: CHILDREN'S ASPI81 MG PO (13:38)
[2022-07-17] MEDS ORDERED: CYMBALTA60 MG PO (13:38)
[2022-07-17] MEDS ORDERED: ABANEU-SL TABL1 EACH SL (13:38)
[2022-07-17] MEDS ORDERED: METFORMIN HCL1000 M3 PO (13:38)
[2022-07-17] MEDS ORDERED: LOSARTAN POTAS100 MG PO (13:38)
[2022-07-17] MEDS ORDERED: FOLIC ACID1 MG PO (13:38)
[2022-07-17] MEDS ORDERED: INTESTINEX680 M1 PO (13:38)
== END 2022-07-17 16:03 | disposition home or self-care (01) | DRG 638 ==
LOC: ER 15:23 → SURH 18:12 → SEC-K 18:12 → SURH 20:56 → MEDJ 07-09 10:08
PROVIDERS: ADMIT Internal Medicine Geriatric Medicine; ATTEND Internal Medicine Geriatric Medicine
PROC: 8E0ZXY6 Isolation (ICD-10-PCS; 2022-07-05)
PROC: 0HDMXZZ Extraction of Right Foot Skin, External Approach (ICD-10-PCS; principal; 2022-07-08)
PROC: 0HDMXZZ Extraction of Right Foot Skin, External Approach (ICD-10-PCS; 2022-07-10)
PROC: 0HBNXZZ Excision of Left Foot Skin, External Approach (ICD-10-PCS; 2022-07-10)
PROC: 0HDNXZZ Extraction of Left Foot Skin, External Approach (ICD-10-PCS; 2022-07-17)
PROC: 0HDMXZZ Extraction of Right Foot Skin, External Approach (ICD-10-PCS; 2022-07-17)
DX: E11.621 Type 2 diabetes mellitus with foot ulcer (principal); I12.0 Hypertensive chronic kidney disease with stage 5 chronic kidney disease or end stage renal disease; L97.518 Non-pressure chronic ulcer of other part of right foot with other specified severity; Z16.24 Resistance to multiple antibiotics; L97.528 Non-pressure chronic ulcer of other part of left foot with other specified severity; M86.671 Other chronic osteomyelitis, right ankle and foot; B96.89 Other specified bacterial agents as the cause of diseases classified elsewhere; D63.8 Anemia in other chronic diseases classified elsewhere; E11.22 Type 2 diabetes mellitus with diabetic chronic kidney disease; N18.32 Chronic kidney disease, stage 3b; E11.51 Type 2 diabetes mellitus with diabetic peripheral angiopathy without gangrene; E11.40 Type 2 diabetes mellitus with diabetic neuropathy, unspecified; E11.65 Type 2 diabetes mellitus with hyperglycemia; E66.01 Morbid (severe) obesity due to excess calories; G47.33 Obstructive sleep apnea (adult) (pediatric); E78.5 Hyperlipidemia, unspecified; Z79.4 Long term (current) use of insulin; Z79.84 Long term (current) use of oral hypoglycemic drugs; Z88.1 Allergy status to other antibiotic agents; Z91.148 Patient's other noncompliance with medication regimen for other reason; Z68.36 Body mass index [BMI] 36.0-36.9, adult

== ENCOUNTER 2022-10-19 14:43 | Inpatient (IN) | payer OTHER ==
[~2022-10-19] VITALS: Ht 180.3 cm; Wt 117.9 kg
[2022-10-19] MEDS ORDERED: OZEMPIC2 MG/0.75 (15:10)
[2022-10-30] MEDS ORDERED: MORGIDOX100 MG PO (14:50)
[2022-10-30] MEDS ORDERED: POM (MEDICAMENTO EN PO (14:50)
[2022-10-30] MEDS ORDERED: ATORVASTATIN CA10 MG PO (14:50)
[2022-10-30] MEDS ORDERED: LYRICA50 MG PO (14:50)
[2022-10-30] MEDS ORDERED: AMOX-CLAV 875-1 EAC1 PO (14:50)
[2022-10-30] MEDS ORDERED: LASIX40 MG PO (14:50)
[2022-10-30] MEDS ORDERED: LANTUS SOL100 UNIT/1 SL (14:50)
[2022-10-30] MEDS ORDERED: OZEMPIC2 MG/0.75 SUBCUTANEO (14:50)
[2022-10-30] MEDS ORDERED: INTESTINEX680 M1 PO (14:50)
[2022-10-30] MEDS ORDERED: LOSARTAN POTAS100 MG PO (14:50)
[2022-10-30] MEDS ORDERED: OXYC1TAB9 PO (14:50)
[2022-10-30] MEDS ORDERED: CYMBALTA60 MG PO (14:50)
[2022-10-30] MEDS ORDERED: CHILDREN'S ASPI81 MG PO (14:50)
== END 2022-10-30 21:32 | disposition home or self-care (01) | DRG 617 ==
LOC: ER 14:43 → MEDI 10-20 10:45 → MEDJ 10-20 10:45 → MEDI 10-21 13:48
PROVIDERS: General Practice; Internal Medicine; Specialist; ADMIT Internal Medicine Geriatric Medicine; ATTEND Internal Medicine Geriatric Medicine
PROC: BQ3DZZZ Magnetic Resonance Imaging (MRI) of Right Lower Leg (ICD-10-PCS; 2022-10-21)
PROC: 02HV33Z Insertion of Infusion Device into Superior Vena Cava, Percutaneous Approach (ICD-10-PCS; 2022-10-21)
PROC: 0Y6P0Z3 Detachment at Right 1st Toe, Low, Open Approach (ICD-10-PCS; principal; 2022-10-23 14:30)
DX: E11.621 Type 2 diabetes mellitus with foot ulcer (principal); M86.171 Other acute osteomyelitis, right ankle and foot; L97.519 Non-pressure chronic ulcer of other part of right foot with unspecified severity; I12.9 Hypertensive chronic kidney disease with stage 1 through stage 4 chronic kidney disease, or unspecified chronic kidney disease; E11.22 Type 2 diabetes mellitus with diabetic chronic kidney disease; E66.01 Morbid (severe) obesity due to excess calories; G47.33 Obstructive sleep apnea (adult) (pediatric); N17.9 Acute kidney failure, unspecified; E11.69 Type 2 diabetes mellitus with other specified complication; Z79.4 Long term (current) use of insulin; E11.65 Type 2 diabetes mellitus with hyperglycemia; Z20.822 Contact with and (suspected) exposure to COVID-19; N18.30 Chronic kidney disease, stage 3 unspecified
CPT/HCPCS: 73725

== ENCOUNTER 2023-03-22 18:57 | Emergency (ER) | payer OTHER ==
[~2023-03-22] VITALS: Ht 180.3 cm; Wt 113.4 kg
[~2023-03-22 18:57] MED LIST changes: +MORGIDOX100 MG PO; +OZEMPIC2 MG/0.75; +POM (MEDICAMENTO EN PO
[2023-03-22] MEDS ORDERED: NORFLEX100MG PO (22:07)
[2023-03-22] MEDS ORDERED: KETO10TA2 PO (22:23)
== END 2023-03-22 22:29 | disposition home or self-care (01) ==
LOC: ER 18:57
DX: S39.82XA Other specified injuries of lower back, initial encounter (principal); W01.0XXA Fall on same level from slipping, tripping and stumbling without subsequent striking against object, initial encounter; Y93.89 Activity, other specified; Y92.018 Other place in single-family (private) house as the place of occurrence of the external cause; Z88.8 Allergy status to other drugs, medicaments and biological substances; Z79.4 Long term (current) use of insulin; E11.40 Type 2 diabetes mellitus with diabetic neuropathy, unspecified
CPT/HCPCS: 72040; 72070; 72100; 73030; 96372; 99284; J1885; J2360

== ENCOUNTER 2023-05-19 11:46 | Emergency (ER) | payer OTHER ==
[~2023-05-19] VITALS: Ht 180.3 cm; Wt 117.9 kg
[~2023-05-19 11:46] MED LIST changes: +KETO10TA2 PO
[2023-05-19] MEDS ORDERED: GLUMETZA1000 MG (11:58)
[2023-05-19] MEDS ORDERED: ADULT LOW DOSE81 M1 (11:59)
[2023-05-19] MEDS ORDERED: KETOROLAC TROMETHAMINE 60 MG VIAL IM ONE (12:15)
[2023-05-19] MEDS ORDERED: ORPHENADRINE CITRATE 30 MG/ML AMPUL IM ONE (12:15)
[2023-05-19] MEDS ORDERED: DICLOFENAC SODI75 MG PO (12:17)
[2023-05-19] MEDS ORDERED: NORFLEX100MG PO (12:17)
== END 2023-05-19 13:05 | disposition home or self-care (01) ==
LOC: ER 11:46
DX: M54.9 Dorsalgia, unspecified (principal); I10 Essential (primary) hypertension; E11.9 Type 2 diabetes mellitus without complications; Z79.84 Long term (current) use of oral hypoglycemic drugs; Z88.1 Allergy status to other antibiotic agents

== ENCOUNTER 2023-05-22 14:04 | Emergency (ER) | payer OTHER ==
[~2023-05-22] VITALS: Ht 180.3 cm; Wt 117.9 kg
[~2023-05-22 14:04] MED LIST changes: +ADULT LOW DOSE81 M1; +DICLOFENAC SODI75 MG PO; +GLUMETZA1000 MG
[2023-05-22] MEDS ORDERED: DEXAMETHASONE SODIUM PHOSPHATE 4 MG/ML VIAL IM STA (15:10)
[2023-05-22] MEDS ORDERED: MEPERIDINE HCL/PF 50 MG/ML VIAL IM STA (15:10)
[2023-05-22] MEDS ORDERED: KETOROLAC TROMETHAMINE 60 MG VIAL IM STA (15:10)
[2023-05-22] MEDS ORDERED: DIPHENHYDRAMINE HCL 50 MG/ML VIAL 1ML IM STA (15:11)
[2023-05-22] MEDS ORDERED: ACETAMINOPHEN500 M2 PO (16:30)
[2023-05-22] MEDS ORDERED: CORTISONE60 GM TOP (16:30)
[2023-05-22] MEDS ORDERED: PERCOCET 5-3251 EACH PO (16:30)
[2023-05-22] MEDS ORDERED: ATARAX25 MG PO (16:30)
== END 2023-05-22 16:38 | disposition home or self-care (01) ==
LOC: ER 14:05
DX: M54.59 Other low back pain (principal); R21 Rash and other nonspecific skin eruption; Z88.8 Allergy status to other drugs, medicaments and biological substances; E11.9 Type 2 diabetes mellitus without complications; Z79.84 Long term (current) use of oral hypoglycemic drugs
CPT/HCPCS: 72100; 96372; 99283; J1100; J1200; J1885; J3490

== ENCOUNTER 2023-08-31 18:49 | Emergency (ER) | payer OTHER ==
[~2023-08-31] VITALS: Ht 180.3 cm; Wt 117.9 kg
[~2023-08-31 18:49] MED LIST changes: +ACETAMINOPHEN500 M2 PO; +ATARAX25 MG PO; +CORTISONE60 GM TOP
[2023-08-31] MEDS ORDERED: ASPIRIN 325 MG TABLET.EC PO STA (19:24)
[2023-08-31 19:38] LABS: HEMATOCRIT 42.4 % (39.0-48.0); HEMOGLOBIN 14.1 g/dL (13-16.00); MEAN CORPUSCULAR HEMOGLOBIN 30.6 pg (27.00-32.0); MEAN CORPUSCULAR HGB CONC 33.2 g/dl (32.0-36.0); PLATELET COUNT 182 K/uL (150-450); RED CELL DISTRIBUTION WIDTH 14.7 % (11.5-14.5)
[2023-08-31 20:00] LABS: INR 0.98; PARTIAL THROMBOPLASTIN TIME 25.4 SECONDS (22.0-34.0); PROTHROMBIN TIME 10.3 SECONDS (9.0-11.5)
[2023-08-31 20:05] LABS: CALCIUM 9.3 mg/dL (8.5-10.1); CREATININE SERUM 1.07 mg/dL (0.70-1.30); GFR 71.75; POTASSIUM 4.39 mEq/L (3.5-5.1)
[2023-09-01] MEDS ORDERED: KETOROLAC TROMETHAMINE 30 MG VIAL IV STA (01:17)
[2023-09-01] MEDS ORDERED: KETO10TA2 PO (05:43)
== END 2023-09-01 06:35 | disposition home or self-care (01) ==
LOC: ER 18:50
PROVIDERS: Emergency Medicine
DX: R07.89 Other chest pain (principal); E11.9 Type 2 diabetes mellitus without complications; Z79.84 Long term (current) use of oral hypoglycemic drugs; Z20.822 Contact with and (suspected) exposure to COVID-19; Z88.8 Allergy status to other drugs, medicaments and biological substances
CPT/HCPCS: 36415; 71045; 93005; 93041; 96365; 99284; J1885

== ENCOUNTER 2024-02-12 15:28 | Inpatient (IN) | payer OTHER ==
[~2024-02-12] VITALS: Ht 180.3 cm; Wt 113.4 kg
--- NOTE | 2024-02-12 15:42 | NUR ---
PTE ALERTA Y ORIENTADO X3. REFIERE HABERSE LASTIMADO EL PIE DERECHO EL VIERNES PASADO REFIERE DOLOR. SE DEAN UDAY Y SE UBICA
[2024-02-12] MEDS ORDERED: PIPERACILLIN/TAZOBACTAM SODIUM 3.375 GM VIAL IV ONE ×4 (16:00→23:47)
[2024-02-12] MEDS ORDERED: FAMOtidine 10 MG/ML (4ML VIAL) IV ONE (16:00)
[2024-02-12] MEDS ORDERED: 0.9 % SODIUM CHLORIDE 1,000 ML IV ONE (16:00)
[2024-02-12] MEDS ORDERED: KETOROLAC TROMETHAMINE 60 MG VIAL IM ONE ×2 (16:00→16:15)
[2024-02-12] MEDS ORDERED: FAMOTIDINE/PF 20 MG/2 ML VIAL ONE (16:15)
--- NOTE | 2024-02-12 16:22 | NUR ---
SE LE ORIENTA A PACIENTE SOBRE LA ORDEN MEDICA, REFIERE ENTENDER LAS MISMAS. SE CANALIZA Y SE LE COLOCA EL IVF'S, SE LE DEAN LAS MUETRAS, SE LE REALIZA PLACA Y SE LE ADMINISTRAN LOS MEDICAMENTOS TIERRA LA ORDEN MEDICA.
[2024-02-12 16:47] LABS: HEMATOCRIT 40.2 % (39.0-48.0); HEMOGLOBIN 13.3 g/dL (13-16.00); MEAN CORPUSCULAR HEMOGLOBIN 29.7 pg (27.00-32.0); PLATELET COUNT 242 K/uL (150-450); RED BLOOD COUNT 4.47 M/uL (4.00-6.00)
[2024-02-12 17:06] LABS: INR 1.03; PARTIAL THROMBOPLASTIN TIME 27.6 SECONDS (22.0-34.0); PROTHROMBIN TIME 11.2 SECONDS (9.0-11.5)
[2024-02-12 17:13] LABS: ALBUMIN 3.5 gm/dL (3.4-5.0); BILIRUBIN TOTAL 0.36 mg/dL (0.3-1.2); CALCIUM 9.2 mg/dL (8.5-10.1); CREATININE SERUM 1.31 mg/dL (0.70-1.30); GFR 56.81; GLOBULINA 4.6 G/DL (2.4-3.5); POTASSIUM 3.74 mEq/L (3.5-5.1); TOTAL PROTEIN 8.1 gm/dL (6.4-8.2)
[2024-02-12 17:22] LABS: ERYTHROCYTE SEDIMENTATION RATE > 130 mm/hr
[2024-02-12 17:41] LABS: C-REACTIVE PROTEIN 4.47 MG/DL (0.00-0.29)
[2024-02-12] MEDS ORDERED: SODIUM CHLORIDE 0.45 % 1,000 ML IV SCH (17:45)
[2024-02-12] MEDS ORDERED: ENOXAPARIN SODIUM 40 MG/0.4 ML SYRINGE SUBCUTANEO SCH (17:48)
[2024-02-12] MEDS ORDERED: LACTOBACILLUS ACIDOPHILUS 1 CAP CAP PO SCH (17:50)
[2024-02-12] MEDS ORDERED: GABAPENTIN 400 MG CAPSULE PO SCH (17:51)
[2024-02-12] MEDS ORDERED: DEXTROSE 50 % IN WATER 0.5 G/ML DISP.SYRIN IV PRN (18:00)
[2024-02-12] MEDS ORDERED: hydrALAZINE HCL 20 MG VIAL IV PRN (18:00)
[2024-02-12] MEDS ORDERED: OxyCODONE HCL/APAP UD (PERCOCET) PO PRN (18:00)
[2024-02-12] MEDS ORDERED: PIPERACILLIN/TAZOBACTAM SODIUM 3.375 GM in 0.9 % SODIUM CHLORIDE 100 ML IV SCH (18:00)
[2024-02-12] MEDS ORDERED: INSULIN LISPRO 1,000 UNIT/10 ML UNITS SUBCUTANEO PRN (18:00)
[2024-02-12] MEDS ORDERED: ENOXAPARIN SODIUM 40 MG/0.4 ML SYRINGE SUBCUTANEO ONE (19:30)
[2024-02-12] MEDS ORDERED: LACTOBACILLUS ACIDOPHILUS 1 CAP CAP PO ONE (19:31)
[2024-02-12 19:50] VITALS: BP 122/75
[2024-02-12] MEDS ORDERED: DOXYCYCLINE HYCLATE 100MG IV SCH (21:00)
[2024-02-12] MEDS ORDERED: FAMOTIDINE/PF 20 MG/2 ML VIAL IV SCH (21:00)
[2024-02-12] MEDS ORDERED: Pregabalin 50 MG CAPSULE PO SCH (21:00)
[2024-02-12 23:21] VITALS: BP 152/82; O2SAT 98
[2024-02-12 23:28] LABS: URINE APPEARANCE Clear; URINE BILIRRUBIN Negative (NEGATIVE); URINE BLOOD Negative; URINE COLOR Yellow; URINE KETONE Trace (NEGATIVE); URINE LEUKOCYTE Negative; URINE NITRATE Negative; URINE PROTEIN Negative (NEGATIVE)
[2024-02-12 23:32] LABS: URINE BACTERIA 12.2 uL (0.0-1933); URINE EPITHELIAL CELLS 9.8 uL (0.0-38.8); URINE RBC 3.3 uL (0.0-20.8); URINE WBC 2.5 uL (0.0-23.2)
[2024-02-12 23:36] LABS: URINE GLUCOSE >=1000 MG/DL (NEGATIVE)
[2024-02-13 03:20] VITALS: BP 145/76; O2SAT 96
[2024-02-13 05:53] LABS: HEMATOCRIT 36.7 % (39.0-48.0); HEMOGLOBIN 12.1 g/dL (13-16.00); MEAN CELL VOLUME 91.3 fL (80.0-100.00); MEAN CORPUSCULAR HGB CONC 32.9 g/dl (32.0-36.0); PLATELET COUNT 179 K/uL (150-450); RED BLOOD COUNT 4.02 M/uL (4.00-6.00); RED CELL DISTRIBUTION WIDTH 14.7 % (11.5-14.5)
[2024-02-13] MEDS ORDERED: DOXYCYCLINE HYCLATE 100MG IV ONE (06:23)
[2024-02-13 06:28] LABS: ALBUMIN 2.8 gm/dL (3.4-5.0); BILIRUBIN TOTAL 0.38 mg/dL (0.3-1.2); CALCIUM 8.5 mg/dL (8.5-10.1); CREATININE SERUM 1.3 mg/dL (0.70-1.30); GFR 57.31; MAGNESIUM 1.9 mg/dL (1.8-2.4); POTASSIUM 3.75 mEq/L (3.5-5.1); TOTAL PROTEIN 6.8 gm/dL (6.4-8.2); TSH 1.07 uIU/mL (0.358-3.74)
[2024-02-13 07:02] LABS: C-REACTIVE PROTEIN 3.23 MG/DL (0.00-0.29)
[2024-02-13] MEDS ORDERED: LOSARTAN POTASSIUM 100 MG TABLET PO SCH (09:00)
[2024-02-13] MEDS ORDERED: FUROsemide 40 MG TABLET PO SCH (09:00)
[2024-02-13] MEDS ORDERED: FOLIC ACID 1 MG TABLET PO SCH (09:00)
[2024-02-13 17:00] VITALS: BP 136/74; O2SAT 96
[2024-02-13] MEDS ORDERED: ATORVASTATIN CALCIUM 10 MG TABLET PO SCH (17:00)
[2024-02-13] MEDS ORDERED: INSULIN GLARGINE,HUM.REC.ANLOG 1,000 UNITS/10 ML UNITS SUBCUTANEO SCH (21:00)
[2024-02-14 01:10] VITALS: BP 121/65; O2SAT 94
[2024-02-14] MEDS ORDERED: EMOLLIENTS 6 OZ BOTTLE TOP SCH (09:00)
[2024-02-14] MEDS ORDERED: (FF) Daptomycin 50 MG/ML IV SCH (09:00)
[2024-02-14] MEDS ORDERED: CHLORHEXIDINE GLUCONATE 120 ML BOTTLE TOP SCH (09:00)
[2024-02-14 12:01] VITALS: BP 134/81; O2SAT 97
[2024-02-14 19:23] VITALS: BP 140/61; O2SAT 97
[2024-02-15 01:47] VITALS: BP 119/63; O2SAT 97
[2024-02-15] MEDS ORDERED: INSULIN LISPRO 1,000 UNIT/10 ML UNITS SUBCUTANEO SCH (08:00)
[2024-02-15 08:58] VITALS: BP 141/74; O2SAT 98
[2024-02-15] MEDS ORDERED: (FF) Daptomycin 50 MG/ML IV SCH (14:00)
[2024-02-15 16:45] VITALS: BP 125/71; O2SAT 97
[2024-02-15 21:38] VITALS: BP 130/63; O2SAT 97
[2024-02-16 01:15] VITALS: BP 110/68; O2SAT 95
[2024-02-16 08:57] VITALS: BP 115/66; O2SAT 98
[2024-02-16] MEDS ORDERED: METRONIDAZOLE/SODIUM CHLORIDE 500 MG/100 ML PIGGYBACK IV SCH (17:00)
[2024-02-16 17:47] VITALS: BP 135/80; O2SAT 96
[2024-02-16] MEDS ORDERED: CEFEPIME HCL 2,000 MG VIAL IV SCH (21:00)
[2024-02-16 21:57] VITALS: BP 130/72; O2SAT 97
[2024-02-17 00:49] VITALS: BP 96/65; O2SAT 99
[2024-02-17 06:57] LABS: HEMATOCRIT 37.2 % (39.0-48.0); HEMOGLOBIN 12.3 g/dL (13-16.00); MEAN CELL VOLUME 90.3 fL (80.0-100.00); MEAN CORPUSCULAR HGB CONC 33.2 g/dl (32.0-36.0); PLATELET COUNT 201 K/uL (150-450); RED BLOOD COUNT 4.12 M/uL (4.00-6.00); RED CELL DISTRIBUTION WIDTH 14.6 % (11.5-14.5)
[2024-02-17 07:20] LABS: ERYTHROCYTE SEDIMENTATION RATE 109 mm/hr
[2024-02-17 08:30] LABS: CALCIUM 8.7 mg/dL (8.5-10.1); CREATININE SERUM 1.01 mg/dL (0.70-1.30); GFR 76.69; MAGNESIUM 2.1 mg/dL (1.8-2.4); PHOSPHOROUS 3.4 mg/dL (2.5-4.9); POTASSIUM 4.19 mEq/L (3.5-5.1)
[2024-02-17 08:34] LABS: C-REACTIVE PROTEIN 1.07 MG/DL (0.00-0.29)
[2024-02-17 09:49] VITALS: BP 123/60; O2SAT 97
[2024-02-17 17:18] VITALS: BP 106/52; O2SAT 98
[2024-02-17] MEDS ORDERED: FAMOtidine 20 MG TABLET PO SCH (21:00)
[2024-02-17 22:49] VITALS: BP 100/52; O2SAT 96
[2024-02-18 01:22] VITALS: BP 117/67; O2SAT 95
[2024-02-18 09:10] VITALS: BP 122/75; O2SAT 98
[2024-02-18 18:34] VITALS: BP 136/82
[2024-02-19 02:20] VITALS: BP 99/54; O2SAT 96
[2024-02-19] MEDS ORDERED: INSULIN LISPRO 1,000 UNIT/10 ML UNITS SUBCUTANEO SCH (08:00)
[2024-02-19 08:29] VITALS: BP 122/74
[2024-02-19 17:08] VITALS: BP 130/66
[2024-02-20 01:03] VITALS: BP 116/69; O2SAT 98
[2024-02-20 09:14] VITALS: BP 117/70; O2SAT 98
[2024-02-20 18:18] VITALS: BP 100/62; O2SAT 98
[2024-02-20] MEDS ORDERED: INSULIN GLARGINE,HUM.REC.ANLOG 1,000 UNITS/10 ML UNITS SUBCUTANEO SCH (21:00)
[2024-02-21 01:22] VITALS: BP 116/59; O2SAT 96
[2024-02-21 06:42] LABS: HEMATOCRIT 37.3 % (39.0-48.0); HEMOGLOBIN 12.2 g/dL (13-16.00); MEAN CORPUSCULAR HEMOGLOBIN 29.8 pg (27.00-32.0); MEAN CORPUSCULAR HGB CONC 32.8 g/dl (32.0-36.0); PLATELET COUNT 170 K/uL (150-450); RED CELL DISTRIBUTION WIDTH 14.4 % (11.5-14.5)
[2024-02-21 07:37] LABS: ALBUMIN 2.9 gm/dL (3.4-5.0); BILIRUBIN TOTAL 0.32 mg/dL (0.3-1.2); CALCIUM 8.7 mg/dL (8.5-10.1); CREATININE SERUM 1.12 mg/dL (0.70-1.30); GFR 68.07; GLOBULINA 3.6 G/DL (2.4-3.5); MAGNESIUM 1.9 mg/dL (1.8-2.4); POTASSIUM 4.18 mEq/L (3.5-5.1); TOTAL PROTEIN 6.5 gm/dL (6.4-8.2)
[2024-02-21] MEDS ORDERED: INSULIN LISPRO 1,000 UNIT/10 ML UNITS SUBCUTANEO SCH (08:00)
[2024-02-21 09:07] VITALS: BP 124/67; O2SAT 96
[2024-02-21 18:56] VITALS: BP 102/78
[2024-02-22 02:33] VITALS: BP 133/88; O2SAT 97
[2024-02-22 09:59] VITALS: BP 181/90; O2SAT 97
[2024-02-22 17:03] VITALS: BP 133/104; O2SAT 99
[2024-02-24 17:45] VITALS: BP 140/80; O2SAT 97
[2024-02-25 01:12] VITALS: BP 147/79; O2SAT 95
[2024-02-25 08:51] VITALS: BP 152/79; O2SAT 98
[2024-02-25 18:08] VITALS: BP 134/66; O2SAT 97
[2024-02-25] MEDS ORDERED: INSULIN GLARGINE,HUM.REC.ANLOG 1,000 UNITS/10 ML UNITS SUBCUTANEO SCH (21:00)
[2024-02-26 01:06] VITALS: BP 137/69
[2024-02-26 07:46] LABS: ALKALINE PHOSPHATASE 93 U/L (50-136); ALT/SGPT 37 U/L (12-78); ANION GAP 9 (10.0-20.0); AST/SGOT 17 U/L (15-37); BILIRUBIN TOTAL 0.22 mg/dL (0.3-1.2); BLOOD UREA NITROGEN 29 mg/dL (7-18); BUN CREA RATIO 28 (7.0-25.0); CALCIUM 8.5 mg/dL (8.5-10.1); CARBON DIOXIDE 29 mEq/L (21-32); CHLORIDE 108 mmol/L (98-107); CREATININE SERUM 1.04 mg/dL (0.70-1.30); GFR 74.14; GLOBULINA 3.6 G/DL (2.4-3.5); POTASSIUM 4.15 mEq/L (3.5-5.1); SODIUM 142 mmol/L (136-145); TOTAL PROTEIN 6.6 gm/dL (6.4-8.2)
[2024-02-26 07:50] LABS: C-REACTIVE PROTEIN < 0.29 MG/DL (0.00-0.29); GLUCOSE FASTING 209 mg/dL (65-100); OSMOLALITY SERUM 295 MOSM/KG (275-295)
[2024-02-26 09:26] VITALS: BP 111/62; O2SAT 99
[2024-02-26 13:18] LABS: HEMATOCRIT 37.3 % (39.0-48.0); HEMOGLOBIN 12.1 g/dL (13-16.00); MEAN CELL VOLUME 92.9 fL (80.0-100.00); MEAN CORPUSCULAR HEMOGLOBIN 30.1 pg (27.00-32.0); MEAN CORPUSCULAR HGB CONC 32.4 g/dl (32.0-36.0); PLATELET COUNT 142 K/uL (150-450); RED BLOOD COUNT 4.02 M/uL (4.00-6.00); RED CELL DISTRIBUTION WIDTH 14.9 % (11.5-14.5)
== END 2024-02-26 21:52 | disposition home or self-care (01) | DRG 623 ==
LOC: ER 15:30 → SURG 20:56 → SEC-K 20:56 → SURG 02-13 00:50 → MEDJ 02-14 13:08
PROVIDERS: General Practice; Specialist; ADMIT Internal Medicine Geriatric Medicine; ATTEND Internal Medicine Geriatric Medicine
PROC: BQ3DZZZ Magnetic Resonance Imaging (MRI) of Right Lower Leg (ICD-10-PCS; 2024-02-12)
PROC: 0JBQ0ZZ Excision of Right Foot Subcutaneous Tissue and Fascia, Open Approach (ICD-10-PCS; principal; 2024-02-13)
PROC: 02HV33Z Insertion of Infusion Device into Superior Vena Cava, Percutaneous Approach (ICD-10-PCS; 2024-02-13)
PROC: 0JDQ0ZZ Extraction of Right Foot Subcutaneous Tissue and Fascia, Open Approach (ICD-10-PCS; 2024-02-20)
DX: E11.621 Type 2 diabetes mellitus with foot ulcer (principal); L02.611 Cutaneous abscess of right foot; L03.115 Cellulitis of right lower limb; L97.519 Non-pressure chronic ulcer of other part of right foot with unspecified severity; Z79.4 Long term (current) use of insulin; E66.01 Morbid (severe) obesity due to excess calories; N17.9 Acute kidney failure, unspecified; G47.33 Obstructive sleep apnea (adult) (pediatric); I12.9 Hypertensive chronic kidney disease with stage 1 through stage 4 chronic kidney disease, or unspecified chronic kidney disease; E11.22 Type 2 diabetes mellitus with diabetic chronic kidney disease; N18.9 Chronic kidney disease, unspecified; E78.5 Hyperlipidemia, unspecified; B96.4 Proteus (mirabilis) (morganii) as the cause of diseases classified elsewhere; B95.1 Streptococcus, group B, as the cause of diseases classified elsewhere; B96.89 Other specified bacterial agents as the cause of diseases classified elsewhere; D64.9 Anemia, unspecified; I73.9 Peripheral vascular disease, unspecified; G62.9 Polyneuropathy, unspecified
CPT/HCPCS: 73221

== ENCOUNTER 2024-04-10 09:49 | Inpatient (IN) | payer OTHER ==
[~2024-04-10] VITALS: Ht 180.3 cm; Wt 120.2 kg
[2024-04-10] MEDS ORDERED: CRESTOR40 MG PO (10:22)
[2024-04-10] MEDS ORDERED: MONTELUKAST SODIUM 10 MG TABLET PO ONE (10:45)
[2024-04-10] MEDS ORDERED: FAMOtidine 10 MG/ML (4ML VIAL) IV ONE (10:45)
[2024-04-10] MEDS ORDERED: LEVALBUTEROL HCL 1.25 MG/3 ML SOLUTION IH ONE ×2 (10:45→10:50)
[2024-04-10] MEDS ORDERED: PIPERACILLIN/TAZOBACTAM SODIUM 3.375 GM VIAL IV ONE ×2 (10:46→17:41)
[2024-04-10] MEDS ORDERED: FAMOTIDINE/PF 20 MG/2 ML VIAL ONE (10:46)
[2024-04-10 11:31] LABS: HEMOGLOBIN 12.8 g/dL (13-16.00); MEAN CELL VOLUME 90.5 fL (80.0-100.00); MEAN CORPUSCULAR HEMOGLOBIN 29.8 pg (27.00-32.0); PLATELET COUNT 163 K/uL (150-450); RED CELL DISTRIBUTION WIDTH 15.1 % (11.5-14.5)
[2024-04-10 11:35] LABS: ERYTHROCYTE SEDIMENTATION RATE 98 mm/hr
[2024-04-10 11:59] LABS: INR 0.99; PARTIAL THROMBOPLASTIN TIME 25.7 SECONDS (22.0-34.0); PROTHROMBIN TIME 10.8 SECONDS (9.0-11.5)
[2024-04-10] MEDS ORDERED: PIPERACILLIN/TAZOBACTAM SODIUM 3.375 GM VIAL IV SCH (12:00)
[2024-04-10 12:10] LABS: ALBUMIN 3.3 gm/dL (3.4-5.0); BILIRUBIN TOTAL 0.43 mg/dL (0.3-1.2); CALCIUM 8.8 mg/dL (8.5-10.1); CREATININE SERUM 1.03 mg/dL (0.70-1.30); GFR 74.98; GLOBULINA 4.7 G/DL (2.4-3.5); POTASSIUM 3.94 mEq/L (3.5-5.1)
[2024-04-10] MEDS ORDERED: SODIUM CHLORIDE 0.45 % 1,000 ML IV SCH (12:15)
[2024-04-10 12:22] LABS: C-REACTIVE PROTEIN 2.99 MG/DL (0.00-0.29)
[2024-04-10] MEDS ORDERED: LINEZOLID IN DEXTROSE 5% 300 ML IV SCH (12:37)
[2024-04-10] MEDS ORDERED: DEXTROSE 50 % IN WATER 0.5 G/ML DISP.SYRIN IV PRN (12:45)
[2024-04-10] MEDS ORDERED: INSULIN LISPRO 1,000 UNIT/10 ML UNITS SUBCUTANEO PRN (12:45)
[2024-04-10] MEDS ORDERED: ENOXAPARIN SODIUM 40 MG/0.4 ML SYRINGE SUBCUTANEO SCH (12:46)
[2024-04-10] MEDS ORDERED: hydrALAZINE HCL 20 MG VIAL IV PRN (13:00)
[2024-04-10] MEDS ORDERED: OxyCODONE HCL/APAP UD (PERCOCET) PO PRN (13:00)
[2024-04-10] MEDS ORDERED: INSULIN LISPRO 1,000 UNIT/10 ML UNITS SUBCUTANEO SCH (17:00)
[2024-04-10] MEDS ORDERED: LACTOBACILLUS ACIDOPHILUS 1 CAP CAP PO SCH (17:00)
[2024-04-10] MEDS ORDERED: ATORVASTATIN CALCIUM 10 MG TABLET PO SCH (17:00)
[2024-04-10] MEDS ORDERED: GABAPENTIN 400 MG CAPSULE PO SCH (17:00)
[2024-04-10] MEDS ORDERED: ENOXAPARIN SODIUM 40 MG/0.4 ML SYRINGE SUBCUTANEO ONE (17:41)
[2024-04-10] MEDS ORDERED: LACTOBACILLUS ACIDOPHILUS 1 CAP CAP PO ONE (17:42)
[2024-04-10] MEDS ORDERED: FAMOTIDINE/PF 20 MG/2 ML VIAL IV SCH (21:00)
[2024-04-10] MEDS ORDERED: INSULIN GLARGINE,HUM.REC.ANLOG 1,000 UNITS/10 ML UNITS SUBCUTANEO SCH (21:00)
[2024-04-10] MEDS ORDERED: Pregabalin 50 MG CAPSULE PO SCH (21:00)
[2024-04-10 21:17] VITALS: BP 125/66; O2SAT 99
[2024-04-11] VITALS: BP 134/66; O2SAT 99
[2024-04-11 07:54] LABS: HEMATOCRIT 41.5 % (39.0-48.0); HEMOGLOBIN 13.3 g/dL (13-16.00); MEAN CELL VOLUME 91.9 fL (80.0-100.00); MEAN CORPUSCULAR HEMOGLOBIN 29.5 pg (27.00-32.0); MEAN CORPUSCULAR HGB CONC 32.2 g/dl (32.0-36.0); PLATELET COUNT 160 K/uL (150-450); RED BLOOD COUNT 4.51 M/uL (4.00-6.00); RED CELL DISTRIBUTION WIDTH 15.1 % (11.5-14.5)
[2024-04-11 08:00] VITALS: BP 126/76; O2SAT 97
[2024-04-11 08:01] LABS: MAGNESIUM 2.2 mg/dL (1.8-2.4); PHOSPHOROUS 4.5 mg/dL (2.5-4.9)
[2024-04-11 08:05] LABS: C-REACTIVE PROTEIN 3.07 MG/DL (0.00-0.29)
[2024-04-11] MEDS ORDERED: FUROsemide 40 MG TABLET PO SCH (09:00)
[2024-04-11] MEDS ORDERED: FOLIC ACID 1 MG TABLET PO SCH (09:00)
[2024-04-11] MEDS ORDERED: CHLORHEXIDINE GLUCONATE 120 ML BOTTLE TOP SCH (09:00)
[2024-04-11] MEDS ORDERED: LOSARTAN POTASSIUM 100 MG TABLET PO SCH (09:00)
[2024-04-11 16:45] VITALS: BP 176/84; O2SAT 98
[2024-04-11] MEDS ORDERED: (FF) Daptomycin 50 MG/ML IV SCH (17:00)
[2024-04-11 21:06] VITALS: BP 157/60
[2024-04-12] VITALS: BP 140/74; O2SAT 95
[2024-04-12 08:00] VITALS: BP 130/75; O2SAT 94
[2024-04-12] MEDS ORDERED: DAPTOMYCIN 750 MG IV SCH (09:00)
[2024-04-12] MEDS ORDERED: (FF) Daptomycin 50 MG/ML IV SCH (17:00)
[2024-04-12 17:24] VITALS: BP 118/71; O2SAT 99
[2024-04-13 00:30] VITALS: BP 128/73; O2SAT 97
[2024-04-13 08:00] VITALS: BP 108/70; O2SAT 95
[2024-04-13] MEDS ORDERED: CEFEPIME HCL 2,000 MG VIAL IV SCH (09:41)
[2024-04-13 12:49] LABS: HEMATOCRIT 40.6 % (39.0-48.0); HEMOGLOBIN 13.4 g/dL (13-16.00); MEAN CELL VOLUME 90.7 fL (80.0-100.00); MEAN CORPUSCULAR HGB CONC 33.1 g/dl (32.0-36.0); PLATELET COUNT 186 K/uL (150-450); RED BLOOD COUNT 4.47 M/uL (4.00-6.00); RED CELL DISTRIBUTION WIDTH 15.2 % (11.5-14.5)
[2024-04-13] MEDS ORDERED: METRONIDAZOLE/SODIUM CHLORIDE 500 MG/100 ML PIGGYBACK IV SCH (13:00)
[2024-04-13 13:10] LABS: CALCIUM 9.2 mg/dL (8.5-10.1); CREATININE SERUM 1.11 mg/dL (0.70-1.30); GFR 68.78; MAGNESIUM 2.3 mg/dL (1.8-2.4); PHOSPHOROUS 2.5 mg/dL (2.5-4.9)
[2024-04-13 16:00] VITALS: BP 133/77; O2SAT 97
[2024-04-14 00:26] VITALS: BP 117/76; O2SAT 97
[2024-04-14 08:00] VITALS: BP 126/63; O2SAT 96
[2024-04-14 16:00] VITALS: BP 146/73; O2SAT 99
[2024-04-14] MEDS ORDERED: FAMOtidine 20 MG TABLET PO SCH (21:00)
[2024-04-15 00:57] VITALS: BP 124/72; O2SAT 95
[2024-04-15 06:56] LABS: HEMATOCRIT 38.2 % (39.0-48.0); HEMOGLOBIN 12.6 g/dL (13-16.00); MEAN CELL VOLUME 90.5 fL (80.0-100.00); MEAN CORPUSCULAR HEMOGLOBIN 29.7 pg (27.00-32.0); MEAN CORPUSCULAR HGB CONC 32.9 g/dl (32.0-36.0); PLATELET COUNT 171 K/uL (150-450); RED BLOOD COUNT 4.22 M/uL (4.00-6.00); RED CELL DISTRIBUTION WIDTH 15.3 % (11.5-14.5)
[2024-04-15 07:45] LABS: CALCIUM 8.7 mg/dL (8.5-10.1); GFR 77.58; MAGNESIUM 2.2 mg/dL (1.8-2.4); PHOSPHOROUS 3.6 mg/dL (2.5-4.9); POTASSIUM 3.71 mEq/L (3.5-5.1)
[2024-04-15 08:00] VITALS: BP 122/80; O2SAT 95
[2024-04-15 08:00] LABS: C-REACTIVE PROTEIN 0.65 MG/DL (0.00-0.29)
[2024-04-15 08:32] LABS: ERYTHROCYTE SEDIMENTATION RATE 92 mm/hr
[2024-04-15 16:00] VITALS: BP 135/62; O2SAT 95
[2024-04-16 00:29] VITALS: BP 112/62; O2SAT 96
[2024-04-16 18:18] VITALS: BP 141/68; O2SAT 98
[2024-04-17 01:48] VITALS: BP 155/76; O2SAT 98
[2024-04-17 09:34] VITALS: BP 127/61; O2SAT 97
[2024-04-17 18:13] VITALS: BP 108/62; O2SAT 98
[2024-04-18 02:47] VITALS: BP 124/58; O2SAT 98
[2024-04-18] MEDS ORDERED: Pregabalin 50 MG CAPSULE PO ONE (10:00)
[2024-04-18 11:59] VITALS: BP 115/58
[2024-04-18 19:10] VITALS: BP 120/81; O2SAT 100
[2024-04-18] MEDS ORDERED: Pregabalin 50 MG CAPSULE PO SCH (21:00)
[2024-04-19 01:14] VITALS: BP 118/50; O2SAT 98
[2024-04-19 09:47] VITALS: BP 116/56
[2024-04-19 16:20] VITALS: BP 100/60
[2024-04-20 02:44] VITALS: BP 152/67
[2024-04-20 08:00] VITALS: BP 115/62
[2024-04-20 12:29] LABS: HEMATOCRIT 39.1 % (39.0-48.0); HEMOGLOBIN 12.8 g/dL (13-16.00); MEAN CELL VOLUME 90.8 fL (80.0-100.00); MEAN CORPUSCULAR HEMOGLOBIN 29.7 pg (27.00-32.0); MEAN CORPUSCULAR HGB CONC 32.7 g/dl (32.0-36.0); PLATELET COUNT 154 K/uL (150-450); RED BLOOD COUNT 4.31 M/uL (4.00-6.00); RED CELL DISTRIBUTION WIDTH 15.5 % (11.5-14.5)
[2024-04-20 13:25] LABS: CREATININE SERUM 0.98 mg/dL (0.70-1.30); GFR 79.41; MAGNESIUM 2.1 mg/dL (1.8-2.4); PHOSPHOROUS 2.8 mg/dL (2.5-4.9); POTASSIUM 4.11 mEq/L (3.5-5.1)
[2024-04-20 16:16] VITALS: BP 157/67
[2024-04-21 02:18] VITALS: BP 125/68
[2024-04-21 09:18] VITALS: BP 128/53
[2024-04-21 18:44] VITALS: BP 102/52; O2SAT 98
[2024-04-22 01:31] VITALS: BP 110/60; O2SAT 97
[2024-04-22 09:19] VITALS: BP 135/66; O2SAT 98
[2024-04-22 18:35] VITALS: BP 135/63; O2SAT 97
[2024-04-23 01:20] VITALS: BP 107/69
[2024-04-23 06:49] LABS: HEMATOCRIT 38.5 % (39.0-48.0); HEMOGLOBIN 12.4 g/dL (13-16.00); MEAN CELL VOLUME 91.7 fL (80.0-100.00); MEAN CORPUSCULAR HEMOGLOBIN 29.7 pg (27.00-32.0); MEAN CORPUSCULAR HGB CONC 32.4 g/dl (32.0-36.0); PLATELET COUNT 139 K/uL (150-450); RED CELL DISTRIBUTION WIDTH 15.2 % (11.5-14.5)
[2024-04-23 07:16] LABS: ALBUMIN 3.1 gm/dL (3.4-5.0); BILIRUBIN TOTAL 0.26 mg/dL (0.3-1.2); CALCIUM 8.7 mg/dL (8.5-10.1); CREATININE SERUM 1.19 mg/dL (0.70-1.30); GFR 63.47; MAGNESIUM 2.1 mg/dL (1.8-2.4); PHOSPHOROUS 3.3 mg/dL (2.5-4.9); POTASSIUM 4.34 mEq/L (3.5-5.1); TOTAL PROTEIN 7.1 gm/dL (6.4-8.2)
[2024-04-23 08:09] VITALS: BP 138/64
[2024-04-23 18:28] VITALS: BP 121/55; O2SAT 98
[2024-04-24 03:02] VITALS: BP 125/62; O2SAT 97
[2024-04-24 08:12] VITALS: BP 124/64
[2024-04-24] MEDS ORDERED: SPIRONOLACTONE 25 MG TABLET PO ONE (17:00)
[2024-04-24 18:16] VITALS: BP 134/64; O2SAT 97
[2024-04-25 01:49] VITALS: BP 137/69
[2024-04-25] MEDS ORDERED: INSULIN LISPRO 1,000 UNIT/10 ML UNITS SUBCUTANEO SCH (08:00)
[2024-04-25 08:59] VITALS: BP 157/77
[2024-04-25 17:25] VITALS: BP 148/75; O2SAT 96
[2024-04-25] MEDS ORDERED: INSULIN GLARGINE,HUM.REC.ANLOG 1,000 UNITS/10 ML UNITS SUBCUTANEO SCH (21:00)
== END 2024-04-25 19:45 | disposition home or self-care (01) | DRG 623 ==
LOC: ER 09:51 → SEC-K 13:12 → SURH 13:12 → MEDJ 04-16 16:49
PROVIDERS: General Practice; ADMIT Internal Medicine Geriatric Medicine; ATTEND Internal Medicine Geriatric Medicine
PROC: 8E0ZXY6 Isolation (ICD-10-PCS; 2024-04-10)
PROC: BL31ZZZ Magnetic Resonance Imaging (MRI) of Lower Extremity Connective Tissue (ICD-10-PCS; 2024-04-10)
PROC: 3E0F7GC Introduction of Other Therapeutic Substance into Respiratory Tract, Via Natural or Artificial Opening (ICD-10-PCS; 2024-04-10)
PROC: 02HV33Z Insertion of Infusion Device into Superior Vena Cava, Percutaneous Approach (ICD-10-PCS; 2024-04-12)
PROC: 0JBR0ZZ Excision of Left Foot Subcutaneous Tissue and Fascia, Open Approach (ICD-10-PCS; principal; 2024-04-14)
PROC: 0JBQ0ZZ Excision of Right Foot Subcutaneous Tissue and Fascia, Open Approach (ICD-10-PCS; 2024-04-14)
PROC: BL31ZZZ Magnetic Resonance Imaging (MRI) of Lower Extremity Connective Tissue (ICD-10-PCS; 2024-04-15)
PROC: 0JBQ0ZZ Excision of Right Foot Subcutaneous Tissue and Fascia, Open Approach (ICD-10-PCS; 2024-04-20)
PROC: 0JBR0ZZ Excision of Left Foot Subcutaneous Tissue and Fascia, Open Approach (ICD-10-PCS; 2024-04-20)
DX: E11.621 Type 2 diabetes mellitus with foot ulcer (principal); L03.115 Cellulitis of right lower limb; L97.418 Non-pressure chronic ulcer of right heel and midfoot with other specified severity; L97.528 Non-pressure chronic ulcer of other part of left foot with other specified severity; L03.032 Cellulitis of left toe; N17.9 Acute kidney failure, unspecified; J00 Acute nasopharyngitis [common cold]; E11.65 Type 2 diabetes mellitus with hyperglycemia; E11.42 Type 2 diabetes mellitus with diabetic polyneuropathy; E11.51 Type 2 diabetes mellitus with diabetic peripheral angiopathy without gangrene; I12.9 Hypertensive chronic kidney disease with stage 1 through stage 4 chronic kidney disease, or unspecified chronic kidney disease; E11.22 Type 2 diabetes mellitus with diabetic chronic kidney disease; N18.30 Chronic kidney disease, stage 3 unspecified; G47.33 Obstructive sleep apnea (adult) (pediatric); E78.5 Hyperlipidemia, unspecified; B95.2 Enterococcus as the cause of diseases classified elsewhere; B96.5 Pseudomonas (aeruginosa) (mallei) (pseudomallei) as the cause of diseases classified elsewhere; B95.62 Methicillin resistant Staphylococcus aureus infection as the cause of diseases classified elsewhere; Z89.411 Acquired absence of right great toe; Z89.421 Acquired absence of other right toe(s); Z89.422 Acquired absence of other left toe(s); Z79.4 Long term (current) use of insulin; Z79.84 Long term (current) use of oral hypoglycemic drugs; Z88.1 Allergy status to other antibiotic agents
CPT/HCPCS: 73221

== ENCOUNTER 2024-06-07 11:54 | Inpatient (IN) | payer OTHER ==
[~2024-06-07] VITALS: Ht 180.3 cm; Wt 120.2 kg
[~2024-06-07 11:54] MED LIST changes: +CRESTOR40 MG PO
[2024-06-07] MEDS ORDERED: CRESTOR40 MG (13:28)
--- NOTE | 2024-06-07 13:29 | NUR ---
PTE ALERTA Y ORIENTADO X3, PTE DE GONZALEZ MAS GONZALEZ INTERNISTA ES STEVE BRAY. REFIEREE TENER MARCELINO MELIDA PARA AMPUTAR EL DEDO RENU DEL PIE TIGIST, SE DEAN SV Y SE UBICA.
--- NOTE | 2024-06-07 13:34 | NUR ---
PTE REFIERE QUE NO ES ALERGICO AL LEVOFLAXIN.
--- NOTE | 2024-06-07 15:00 | NUR ---
PTE ALERTA Y ORIENTADO X3 ES EVALUADO POR EL ASSISTANT STORE LEADER ROBE NORRIS. RN CANALIZA Y CONECTA MUESTRAS DE LAB TIERRA ORDEN MEDICA BAJO MEDIDAS ESTERILES. SE NOTIFICA XRAY.
[2024-06-07 15:13] LABS: HEMATOCRIT 40.9 % (39.0-48.0); HEMOGLOBIN 13.4 g/dL (13-16.00); MEAN CELL VOLUME 89.6 fL (80.0-100.00); MEAN CORPUSCULAR HEMOGLOBIN 29.3 pg (27.00-32.0); MEAN CORPUSCULAR HGB CONC 32.7 g/dl (32.0-36.0); PLATELET COUNT 208 K/uL (150-450); RED BLOOD COUNT 4.57 M/uL (4.00-6.00); RED CELL DISTRIBUTION WIDTH 15.5 % (11.5-14.5)
[2024-06-07] MEDS ORDERED: SODIUM CHLORIDE 0.45 % 1,000 ML IV SCH (15:30)
[2024-06-07 15:36] LABS: ALBUMIN 3.5 gm/dL (3.4-5.0); BILIRUBIN TOTAL 0.45 mg/dL (0.3-1.2); CALCIUM 9.3 mg/dL (8.5-10.1); CREATININE SERUM 1.13 mg/dL (0.70-1.30); GFR 67.13; GLOBULINA 4.9 G/DL (2.4-3.5); POTASSIUM 4.49 mEq/L (3.5-5.1); TOTAL PROTEIN 8.4 gm/dL (6.4-8.2)
[2024-06-07 15:43] LABS: INR 1.03; PARTIAL THROMBOPLASTIN TIME 25.6 SECONDS (22.0-34.0); PROTHROMBIN TIME 11.2 SECONDS (9.0-11.5)
[2024-06-07] MEDS ORDERED: CEFEPIME HCL 2,000 MG in DEXTROSE 5 % IN WATER 100 ML IV SCH (15:51)
[2024-06-07] MEDS ORDERED: OxyCODONE HCL/APAP UD (PERCOCET) PO PRN (16:00)
[2024-06-07] MEDS ORDERED: DEXTROSE 50 % IN WATER 0.5 G/ML DISP.SYRIN IV PRN (16:00)
[2024-06-07] MEDS ORDERED: INSULIN LISPRO 1,000 UNIT/10 ML UNITS SUBCUTANEO PRN (16:00)
[2024-06-07] MEDS ORDERED: ENOXAPARIN SODIUM 40 MG/0.4 ML SYRINGE SUBCUTANEO ONE (16:12)
[2024-06-07] MEDS ORDERED: LACTOBACILLUS ACIDOPHILUS 1 CAP CAP PO ONE (16:13)
[2024-06-07] MEDS ORDERED: CEFEPIME HCL 2,000 MG VIAL ONE (16:29)
[2024-06-07] MEDS ORDERED: LACTOBACILLUS ACIDOPHILUS 1 CAP CAP PO SCH (17:00)
[2024-06-07] MEDS ORDERED: INSULIN LISPRO 1,000 UNIT/10 ML UNITS SUBCUTANEO SCH (17:00)
[2024-06-07] MEDS ORDERED: GABAPENTIN 400 MG CAPSULE PO SCH (17:00)
[2024-06-07] MEDS ORDERED: ATORVASTATIN CALCIUM 10 MG TABLET PO SCH (17:00)
[2024-06-07] MEDS ORDERED: ENOXAPARIN SODIUM 40 MG/0.4 ML SYRINGE SUBCUTANEO SCH (17:00)
[2024-06-07] MEDS ORDERED: LINEZOLID IN DEXTROSE 5% 300 ML IV SCH (17:00)
[2024-06-07] MEDS ORDERED: Pregabalin 50 MG CAPSULE PO SCH (21:00)
[2024-06-07] MEDS ORDERED: INSULIN GLARGINE,HUM.REC.ANLOG 1,000 UNITS/10 ML UNITS SUBCUTANEO SCH (21:00)
[2024-06-07] MEDS ORDERED: MONTELUKAST SODIUM 10 MG TABLET PO SCH (21:00)
[2024-06-07] MEDS ORDERED: FAMOTIDINE/PF 20 MG/2 ML VIAL IV SCH (21:00)
[2024-06-07 23:10] VITALS: BP 140/85; O2SAT 98
[2024-06-08 02:47] VITALS: BP 160/77
[2024-06-08 06:13] LABS: HEMATOCRIT 39.5 % (39.0-48.0); HEMOGLOBIN 12.6 g/dL (13-16.00); MEAN CELL VOLUME 90.5 fL (80.0-100.00); MEAN CORPUSCULAR HEMOGLOBIN 28.9 pg (27.00-32.0); PLATELET COUNT 164 K/uL (150-450); RED BLOOD COUNT 4.37 M/uL (4.00-6.00); RED CELL DISTRIBUTION WIDTH 15.4 % (11.5-14.5)
[2024-06-08 06:30] LABS: ERYTHROCYTE SEDIMENTATION RATE 63 mm/hr
[2024-06-08 07:38] LABS: MAGNESIUM 2.3 mg/dL (1.8-2.4); PHOSPHOROUS 3.6 mg/dL (2.5-4.9); TSH 1.44 uIU/mL (0.358-3.74)
[2024-06-08 07:45] LABS: C-REACTIVE PROTEIN 0.56 MG/DL (0.00-0.29)
[2024-06-08 08:43] LABS: PH,URINE 5.5 (5.0-8.0); URINE APPEARANCE Clear; URINE BILIRRUBIN Negative (NEGATIVE); URINE BLOOD Negative; URINE COLOR Yellow; URINE KETONE Trace (NEGATIVE); URINE LEUKOCYTE Negative; URINE NITRATE Negative; URINE PROTEIN Negative (NEGATIVE); URINE UROBILINOGEN 0.2 E.U./dl
[2024-06-08 08:47] VITALS: BP 121/63
[2024-06-08 08:47] LABS: URINE EPITHELIAL CELLS 7.7 uL (0.0-38.8)
[2024-06-08 08:57] LABS: URINE BACTERIA 1.2 uL (0.0-1933); URINE CAST 0.44 uL (0.0-1.40); URINE GLUCOSE >=1000 MG/DL (NEGATIVE); URINE RBC 0.5 uL (0.0-20.8); URINE WBC 1.1 uL (0.0-23.2)
[2024-06-08] MEDS ORDERED: LIDOCAINE HCL 1% 20 ML VIAL IJ ONE (08:59)
[2024-06-08] MEDS ORDERED: POVIDONE-IODINE 118 ML BOTT TOP ONE (08:59)
[2024-06-08] MEDS ORDERED: FUROsemide 40 MG TABLET PO SCH (09:00)
[2024-06-08] MEDS ORDERED: LOSARTAN POTASSIUM 100 MG TABLET PO SCH (09:00)
[2024-06-08] MEDS ORDERED: SPIRONOLACTONE 25 MG TABLET PO SCH (09:00)
[2024-06-08] MEDS ORDERED: FOLIC ACID 1 MG TABLET PO SCH (09:00)
[2024-06-08] MEDS ORDERED: FAMOTIDINE/PF 20 MG/2 ML VIAL ONE (10:34)
[2024-06-08] MEDS ORDERED: LINEZOLID 600 MG TABLET PO SCH (17:00)
[2024-06-08 17:53] VITALS: BP 141/74; O2SAT 98
[2024-06-09] MEDS ORDERED: CHLORHEXIDINE GLUCONATE 120 ML BOTTLE TOP SCH (09:00)
[2024-06-09 09:27] LABS: HEMATOCRIT 41.4 % (39.0-48.0); HEMOGLOBIN 13.1 g/dL (13-16.00); MEAN CELL VOLUME 90.2 fL (80.0-100.00); MEAN CORPUSCULAR HEMOGLOBIN 28.5 pg (27.00-32.0); MEAN CORPUSCULAR HGB CONC 31.6 g/dl (32.0-36.0); PLATELET COUNT 180 K/uL (150-450); RED BLOOD COUNT 4.59 M/uL (4.00-6.00); RED CELL DISTRIBUTION WIDTH 15.3 % (11.5-14.5)
[2024-06-09 10:38] VITALS: BP 135/76; O2SAT 95
[2024-06-09 10:54] LABS: CREATININE SERUM 0.96 mg/dL (0.70-1.30); GFR 81.02; MAGNESIUM 2.3 mg/dL (1.8-2.4); PHOSPHOROUS 2.8 mg/dL (2.5-4.9); POTASSIUM 4.57 mEq/L (3.5-5.1)
[2024-06-09] MEDS ORDERED: DOXYCYCLINE HYCLATE 100 MG CAPSULE PO SCH (17:00)
[2024-06-09 18:15] VITALS: BP 136/76; O2SAT 98
[2024-06-10 01:18] VITALS: BP 136/70
[2024-06-10 09:29] VITALS: BP 122/71; O2SAT 97
[2024-06-10] MEDS ORDERED: LOSARTAN POTAS100 MG PO (12:30)
[2024-06-10] MEDS ORDERED: LASIX40 MG PO (12:30)
[2024-06-10] MEDS ORDERED: MONTELUKAST SOD10 MG PO (12:30)
[2024-06-10] MEDS ORDERED: CRESTOR40 MG PO (12:30)
[2024-06-10] MEDS ORDERED: SPIRONOLACTONE25 MG PO (12:30)
[2024-06-10] MEDS ORDERED: LYRICA50 MG PO (12:30)
[2024-06-10] MEDS ORDERED: INTESTINEX680 M1 PO (12:30)
[2024-06-10] MEDS ORDERED: ATORVASTATIN CA10 MG PO (12:30)
[2024-06-10] MEDS ORDERED: MONODOX100 MG PO (12:30)
[2024-06-10] MEDS ORDERED: GABAPENTIN400 MG PO (12:30)
[2024-06-10] MEDS ORDERED: MOUNJARO15 MG/0.5 SUBCUTANEO (13:00)
[2024-06-10] MEDS ORDERED: INSULIN LI100 UNIT/1 SUBCUTANEO (13:00)
[2024-06-10] MEDS ORDERED: FARXIGA10 MG PO (13:00)
[2024-06-10] MEDS ORDERED: LANTUS SOL100 UNIT/1 SUBCUTANEO (13:00)
[2024-06-10] MEDS ORDERED: DEXTROSE 50 % IN WATER 0.5 G/ML VIAL IV PRN (14:30)
== END 2024-06-10 15:44 | disposition home or self-care (01) | DRG 256 ==
LOC: ER 11:55 → SEC-K 16:22 → SURG 16:22 → MEDI 16:22 → SURG 17:21 → MEDI 17:56 → MEDJ 06-09 08:22
PROVIDERS: Emergency Medicine; Student in an Organized Health Care Education/Training Program; ADMIT Internal Medicine Geriatric Medicine; ATTEND Internal Medicine Geriatric Medicine
PROC: 0Y6Q0Z0 Detachment at Left 1st Toe, Complete, Open Approach (ICD-10-PCS; principal; 2024-06-08 09:30)
DX: E11.52 Type 2 diabetes mellitus with diabetic peripheral angiopathy with gangrene (principal); I96 Gangrene, not elsewhere classified; M86.8X7 Other osteomyelitis, ankle and foot; L02.611 Cutaneous abscess of right foot; Z79.4 Long term (current) use of insulin; E11.628 Type 2 diabetes mellitus with other skin complications; I11.9 Hypertensive heart disease without heart failure; E11.40 Type 2 diabetes mellitus with diabetic neuropathy, unspecified; G47.33 Obstructive sleep apnea (adult) (pediatric)

== ENCOUNTER → 2024-08-10 09:26 | Outpatient (CLI) | payer OTHER ==
[~2024-08-10 09:26] MED LIST changes: +CRESTOR40 MG; +GABAPENTIN400 MG PO; +INSULIN LI100 UNIT/1 SUBCUTANEO; +MONODOX100 MG PO; +MONTELUKAST SOD10 MG PO; +MOUNJARO15 MG/0.5 SUBCUTANEO; +SPIRONOLACTONE25 MG PO
== END | disposition home or self-care (01) ==
LOC: NUCLEAR 09:26
PROVIDERS: ATTEND Psychiatry & Neurology Clinical Neurophysiology
DX: F07.81 Postconcussional syndrome (principal)
CPT/HCPCS: 78803; A9557

== ENCOUNTER 2024-08-14 09:48 | Inpatient (IN) | payer OTHER ==
[~2024-08-14] VITALS: Ht 180.3 cm; Wt 126.6 kg
[~2024-08-14 09:48] MED LIST changes: -ADULT LOW DOSE81 M1; +ADULT LOW DOSE81 M1 PO
--- NOTE | 2024-08-14 10:08 | NUR ---
SE RECIBE PTE ALERTA, ORIENTADO X3 Y AMBULANDO. PTE PRESENTA REFERIDO POR DR RAMAN PARA ADMICION POR DX DE ULCERA. SE MIDEN S/V Y SE UBICA.
--- NOTE | 2024-08-14 12:09 | NUR ---
SE ORIENTA A PTE SOBRE TX MEDICO ORDENADO POR . SE REALIZA ARJUN DE MUESTRAS DE LAB TIERRA ORDEN MEDICA Y BAJO MEDIDAS ASEPTICAS. PTE PENDIENTE A PICC-LINE.
[2024-08-14 13:15] LABS: URINE APPEARANCE Clear; URINE BILIRRUBIN Negative (NEGATIVE); URINE BLOOD Negative; URINE COLOR Yellow; URINE KETONE Negative (NEGATIVE); URINE LEUKOCYTE Negative; URINE NITRATE Negative; URINE PROTEIN Negative (NEGATIVE); URINE UROBILINOGEN 1.0 E.U./dl
[2024-08-14 13:18] LABS: URINE BACTERIA 8.5 uL (0.0-1933); URINE EPITHELIAL CELLS 11.3 uL (0.0-38.8); URINE WBC 3.4 uL (0.0-23.2)
[2024-08-14 13:20] LABS: BASO % 1.1 % (0.1-1.2); EOS # 0.12 (0.04-0.54); EOS % 1.8 % (0.7-7.0); LYMPH # 1.93 (1.18-3.74); LYMPH % 29.2 % (19.3-53.1); MEAN PLATELET VOLUME 13.10 fl (9.4-12.4); MONO # 0.58 (0.24-0.82); MONO % 8.8 % (4.7-12.5); NEUT # 3.90 (1.56-6.13); NEUT % 58.8 % (34.0-71.1); RED CELL DISTRIBUTION WIDTH 15.0 % (11.6-14.4)
[2024-08-14 13:29] LABS: URINE CAST 0.29 uL (0.0-1.40); URINE GLUCOSE >=1000 MG/DL (NEGATIVE); URINE RBC 1.6 uL (0.0-20.8)
[2024-08-14 13:31] LABS: COVID-19 AG NEGATIVE (NEGATIVE)
[2024-08-14 13:45] LABS: INR 0.99
[2024-08-14 13:53] LABS: ALT/SGPT 32.0 U/L (12-78); AST/SGOT 17.0 U/L (15-37); BILIRUBIN TOTAL 0.33 mg/dL (0.3-1.2); BUN CREA RATIO 16.0 (7.0-25.0); CREATININE SERUM 1.04 mg/dL (0.70-1.30); GFR 73.87; GLOBULINA 4.0 G/DL (2.4-3.5); GLUCOSE FASTING 84.0 mg/dL (65-100); OSMOLALITY SERUM 291.0 MOSM/KG (275-295)
[2024-08-14] MEDS ORDERED: INSULIN GLARGINE,HUM.REC.ANLOG 1,000 UNITS/10 ML UNITS SUBCUTANEO SCH (20:06)
[2024-08-14] MEDS ORDERED: POTASSIUM BICARBONATE/CIT AC 25 MEQ TABLET.EFF PO ONE (20:15)
[2024-08-14] MEDS ORDERED: SODIUM CHLORIDE 0.45 % 1,000 ML IV SCH (20:15)
[2024-08-14] MEDS ORDERED: DEXTROSE 50 % IN WATER 0.5 G/ML DISP.SYRIN IV PRN (20:15)
[2024-08-14] MEDS ORDERED: ACETAMINOPHEN 500 MG GEL..CAP PO PRN (20:15)
[2024-08-14] MEDS ORDERED: INSULIN LISPRO 1,000 UNIT/10 ML UNITS SUBCUTANEO PRN (20:15)
[2024-08-14] MEDS ORDERED: AMPICILLIN SODIUM/SULBACTAM NA 3,000 MG in 0.9 % SODIUM CHLORIDE 100 ML IV SCH (20:26)
[2024-08-14] MEDS ORDERED: CEFTAZIDIME IV SCH (21:00)
[2024-08-14] MEDS ORDERED: LINEZOLID IN DEXTROSE 5% 300 ML IV SCH (21:00)
[2024-08-14] MEDS ORDERED: AVIBACTAM IV SCH (21:00)
[2024-08-15 06:20] VITALS: BP 120/76; O2SAT 97
[2024-08-15] MEDS ORDERED: INSULIN LISPRO 1,000 UNIT/10 ML UNITS SUBCUTANEO SCH (08:00)
[2024-08-15] MEDS ORDERED: ROSUVASTATIN CALCIUM 20 MG TABLET PO SCH (09:00)
[2024-08-15] MEDS ORDERED: FARXIGA 10 MG PO SCH (09:00)
[2024-08-15] MEDS ORDERED: LOSARTAN POTASSIUM 100 MG TABLET PO SCH (09:00)
[2024-08-15] MEDS ORDERED: ASPIRIN 81 MG TAB.CHEW PO SCH (09:00)
[2024-08-15] MEDS ORDERED: ENOXAPARIN SODIUM 40 MG/0.4 ML SYRINGE SUBCUTANEO SCH (09:00)
[2024-08-15 10:50] VITALS: BP 111/69; O2SAT 98
[2024-08-15] MEDS ORDERED: POTASSIUM CHLORIDE IN WATER 100 ML IV NR (11:45)
[2024-08-15] MEDS ORDERED: CEFTOLOZANE/TAZOBACTAM 1.5 GM VIAL IV SCH (13:00)
[2024-08-15] MEDS ORDERED: DIPHENHYDRAMINE HCL 50 MG CAPSULE PO NR (15:00)
[2024-08-15] MEDS ORDERED: DIPHENHYDRAMINE HCL 50 MG CAPSULE PO PRN (15:00)
[2024-08-15] MEDS ORDERED: LACTOBACILLUS ACIDOPHILUS 1 CAP CAP PO SCH (17:00)
[2024-08-15] MEDS ORDERED: HYDROCORTISONE 2.5% 30 GM TUBE TOP SCH (17:00)
[2024-08-15 18:58] VITALS: BP 160/85; O2SAT 96
[2024-08-15] MEDS ORDERED: INSULIN GLARGINE,HUM.REC.ANLOG 1,000 UNITS/10 ML UNITS SUBCUTANEO SCH (21:00)
[2024-08-16 00:48] VITALS: BP 133/68
[2024-08-16 06:08] LABS: BASO % 0.8 % (0.1-1.2); EOS # 0.17 (0.04-0.54); EOS % 2.7 % (0.7-7.0); LYMPH # 1.47 (1.18-3.74); LYMPH % 23.4 % (19.3-53.1); MEAN PLATELET VOLUME 12.30 fl (9.4-12.4); MONO # 0.47 (0.24-0.82); MONO % 7.5 % (4.7-12.5); NEUT # 4.12 (1.56-6.13); NEUT % 65.4 % (34.0-71.1); RED CELL DISTRIBUTION WIDTH 14.9 % (11.6-14.4)
[2024-08-16 06:39] LABS: BUN CREA RATIO 17.0 (7.0-25.0); CREATININE SERUM 0.81 mg/dL (0.70-1.30); GFR 98.57; GLUCOSE FASTING 98.0 mg/dL (65-100); OSMOLALITY SERUM 289.0 MOSM/KG (275-295)
[2024-08-16 09:00] VITALS: BP 138/82; O2SAT 97
[2024-08-16] MEDS ORDERED: CHLORHEXIDINE GLUCONATE 120 ML BOTTLE TOP SCH (09:00)
[2024-08-16] MEDS ORDERED: PATIENTS OWN MEDICATION (MEDICAMENTO EN PISO) PO SCH (09:00)
[2024-08-16 16:40] VITALS: BP 149/89
[2024-08-17 02:36] VITALS: BP 131/77; O2SAT 97
[2024-08-17 08:34] VITALS: BP 132/70; O2SAT 98
[2024-08-17] MEDS ORDERED: SODIUM HYPOCHLORITE 1OZ TOP SCH (12:00)
[2024-08-17] MEDS ORDERED: INSULIN LISPRO 1,000 UNIT/10 ML UNITS SUBCUTANEO SCH (12:00)
[2024-08-17 17:43] VITALS: BP 158/81
[2024-08-18 02:05] VITALS: BP 138/77; O2SAT 95
[2024-08-18 08:58] VITALS: BP 116/59; O2SAT 100
[2024-08-18] MEDS ORDERED: FOLIC ACID 1 MG TABLET PO NR (13:00)
[2024-08-18] MEDS ORDERED: (FF) Daptomycin 50 MG/ML IV SCH (14:00)
[2024-08-18 17:35] VITALS: BP 169/71
[2024-08-19 02:25] VITALS: BP 111/72; O2SAT 96
[2024-08-19 08:48] VITALS: BP 126/63; O2SAT 99
[2024-08-19] MEDS ORDERED: FOLIC ACID 1 MG TABLET PO SCH (09:00)
[2024-08-19 18:48] VITALS: BP 164/67
[2024-08-20 01:54] VITALS: BP 121/60; O2SAT 99
[2024-08-20 08:08] VITALS: BP 128/77; O2SAT 96
[2024-08-20 10:59] LABS: BASO % 0.8 % (0.1-1.2); EOS # 0.19 (0.04-0.54); EOS % 2.1 % (0.7-7.0); LYMPH # 2.45 (1.18-3.74); LYMPH % 27.7 % (19.3-53.1); MEAN PLATELET VOLUME 11.70 fl (9.4-12.4); MONO # 0.81 (0.24-0.82); MONO % 9.1 % (4.7-12.5); NEUT # 5.32 (1.56-6.13); NEUT % 60.1 % (34.0-71.1); RED CELL DISTRIBUTION WIDTH 14.8 % (11.6-14.4)
[2024-08-20] MEDS ORDERED: OxyCODONE HCL/APAP UD (PERCOCET) PO PRN (11:30)
[2024-08-20 11:33] LABS: BUN CREA RATIO 20.0 (7.0-25.0); CREATININE SERUM 0.89 mg/dL (0.70-1.30); GFR 88.42; GLUCOSE FASTING 116.0 mg/dL (65-100); OSMOLALITY SERUM 286.0 MOSM/KG (275-295)
[2024-08-20] MEDS ORDERED: POTASSIUM PHOS,M-BASIC-D-BASIC 3 MM/ML VIAL IV NR (12:15)
[2024-08-20] MEDS ORDERED: OxyCODONE HCL 5 MG TABLET (ROXICODONE) PO PRN (12:45)
[2024-08-20] MEDS ORDERED: ACETAMINOPHEN 325 MG TABLET PO SCH (13:00)
[2024-08-20 18:36] VITALS: BP 111/85
[2024-08-21 01:36] VITALS: BP 160/71; O2SAT 97
[2024-08-21 18:13] VITALS: BP 138/84; O2SAT 99
[2024-08-22 01:31] VITALS: BP 140/67; O2SAT 97
[2024-08-22 07:00] VITALS: BP 104/66; O2SAT 95
[2024-08-22 16:00] VITALS: BP 156/73; O2SAT 99
[2024-08-23 02:01] VITALS: BP 160/85; O2SAT 97
[2024-08-23 06:35] LABS: BASO % 1.2 % (0.1-1.2); EOS # 0.18 (0.04-0.54); EOS % 2.6 % (0.7-7.0); LYMPH # 2.25 (1.18-3.74); LYMPH % 32.4 % (19.3-53.1); MEAN PLATELET VOLUME 12.10 fl (9.4-12.4); MONO # 0.78 (0.24-0.82); MONO % 11.2 % (4.7-12.5); NEUT # 3.64 (1.56-6.13); NEUT % 52.3 % (34.0-71.1); RED CELL DISTRIBUTION WIDTH 14.9 % (11.6-14.4)
[2024-08-23 06:41] LABS: ALT/SGPT 21.0 U/L (12-78); AST/SGOT 19.0 U/L (15-37); BILIRUBIN TOTAL 0.19 mg/dL (0.3-1.2); BUN CREA RATIO 17.0 (7.0-25.0); CREATININE SERUM 0.71 mg/dL (0.70-1.30); GFR 114.76; GLOBULINA 3.2 G/DL (2.4-3.5); GLUCOSE FASTING 74.0 mg/dL (65-100); OSMOLALITY SERUM 302.0 MOSM/KG (275-295)
[2024-08-23 10:10] VITALS: BP 123/74; O2SAT 99
[2024-08-23 18:23] VITALS: BP 165/77
[2024-08-24 00:56] VITALS: BP 149/80; O2SAT 99
[2024-08-24 09:07] VITALS: BP 132/70; O2SAT 96
[2024-08-24] MEDS ORDERED: DEXTROSE 50 % IN WATER 0.5 G/ML VIAL IV PRN (14:15)
[2024-08-24] MEDS ORDERED: POTASSIUM CHLORIDE IN WATER 100 ML IV NR (14:20)
[2024-08-24] MEDS ORDERED: POTASSIUM PHOS,M-BASIC-D-BASIC 15 MM in 0.9 % SODIUM CHLORIDE 250 ML IV NR (17:00)
[2024-08-24 18:41] VITALS: BP 138/74; O2SAT 98
[2024-08-25 00:56] VITALS: BP 140/60; O2SAT 99
[2024-08-25 06:35] LABS: BUN CREA RATIO 25.0 (7.0-25.0); CREATININE SERUM 0.8 mg/dL (0.70-1.30); GFR 100.0; GLUCOSE FASTING 153.0 mg/dL (65-100); OSMOLALITY SERUM 287.0 MOSM/KG (275-295)
[2024-08-25 10:19] VITALS: BP 131/73; O2SAT 96
[2024-08-25 18:49] VITALS: BP 145/66; O2SAT 100
[2024-08-26 01:00] VITALS: BP 138/68
[2024-08-26 09:30] VITALS: BP 107/60; O2SAT 97
[2024-08-26] MEDS ORDERED: CEFEPIME HCL 2,000 MG VIAL IV SCH (09:44)
[2024-08-26 18:20] VITALS: BP 124/79; O2SAT 98
[2024-08-27 01:33] VITALS: BP 112/67
[2024-08-27 05:40] LABS: BASO % 0.9 % (0.1-1.2); EOS # 0.23 (0.04-0.54); EOS % 4.2 % (0.7-7.0); LYMPH # 1.50 (1.18-3.74); LYMPH % 27.4 % (19.3-53.1); MEAN PLATELET VOLUME 12.60 fl (9.4-12.4); MONO # 0.64 (0.24-0.82); MONO % 11.7 % (4.7-12.5); NEUT # 3.04 (1.56-6.13); NEUT % 55.4 % (34.0-71.1); RED CELL DISTRIBUTION WIDTH 14.9 % (11.6-14.4)
[2024-08-27 08:00] VITALS: BP 105/65; O2SAT 97
[2024-08-27 16:48] VITALS: BP 127/68; O2SAT 95
[2024-08-28 03:29] VITALS: BP 115/69; O2SAT 95
[2024-08-28 10:19] VITALS: BP 131/60
[2024-08-28 18:59] VITALS: BP 98/51
[2024-08-28] MEDS ORDERED: BISACODYL 5 MG TABLET.EC PO SCH (19:11)
[2024-08-29 02:53] VITALS: BP 135/84; O2SAT 98
[2024-08-29 09:01] VITALS: BP 150/69
[2024-08-29 17:42] VITALS: BP 183/71
[2024-08-30 00:38] VITALS: BP 105/66; O2SAT 98
[2024-08-30 06:33] LABS: BASO % 1.1 % (0.1-1.2); EOS # 0.26 (0.04-0.54); EOS % 4.6 % (0.7-7.0); LYMPH # 1.75 (1.18-3.74); LYMPH % 30.7 % (19.3-53.1); MEAN PLATELET VOLUME 12.70 fl (9.4-12.4); MONO # 0.63 (0.24-0.82); MONO % 11.1 % (4.7-12.5); NEUT # 2.98 (1.56-6.13); NEUT % 52.1 % (34.0-71.1); RED CELL DISTRIBUTION WIDTH 14.8 % (11.6-14.4)
[2024-08-30 06:49] LABS: ALT/SGPT 39.0 U/L (12-78); AST/SGOT 31.0 U/L (15-37); BILIRUBIN TOTAL 0.35 mg/dL (0.3-1.2); BUN CREA RATIO 22.0 (7.0-25.0); CREATININE SERUM 0.98 mg/dL (0.70-1.30); GFR 79.12; GLOBULINA 3.6 G/DL (2.4-3.5); GLUCOSE FASTING 96.0 mg/dL (65-100); OSMOLALITY SERUM 286.0 MOSM/KG (275-295)
[2024-08-30 06:54] LABS: ERYTHROCYTE SEDIMENTATION RATE 66 mm/hr (0-20)
[2024-08-30 08:38] VITALS: BP 110/57; O2SAT 98
[2024-08-30 18:01] VITALS: BP 129/56
[2024-08-31 02:11] VITALS: BP 120/72; O2SAT 97
[2024-08-31 07:50] VITALS: BP 128/69
[2024-08-31 12:39] LABS: MANUAL PLATELET COUNT 195
[2024-08-31 19:14] VITALS: BP 135/70; O2SAT 97
[2024-09-01 01:30] VITALS: BP 135/74; O2SAT 97
[2024-09-01] MEDS ORDERED: levoFLOXacin IN DEXTROSE 5 % 5 MG/ML PIGGYBAG IV SCH (09:00)
[2024-09-01 09:34] VITALS: BP 113/71
[2024-09-01 17:54] VITALS: BP 112/62; O2SAT 98
[2024-09-02 02:16] VITALS: BP 120/75; O2SAT 97
[2024-09-02 10:36] VITALS: BP 113/62; O2SAT 97
[2024-09-02] MEDS ORDERED: LYRICA50 MG PO (13:02)
[2024-09-02] MEDS ORDERED: CYMBALTA60 MG PO (13:02)
[2024-09-02] MEDS ORDERED: CRESTOR40 MG PO (13:02)
[2024-09-02] MEDS ORDERED: LOSARTAN POTAS100 MG PO (13:02)
[2024-09-02] MEDS ORDERED: GABAPENTIN400 MG PO (13:02)
[2024-09-02] MEDS ORDERED: OXYC1TAB9 PO (13:02)
[2024-09-02] MEDS ORDERED: MOUNJARO15 MG/0.5 SUBCUTANEO (13:02)
[2024-09-02] MEDS ORDERED: INTESTINEX680 M1 PO (13:02)
[2024-09-02] MEDS ORDERED: FARXIGA10 MG PO (13:02)
[2024-09-02] MEDS ORDERED: FOLIC ACID1 MG PO (13:02)
[2024-09-02] MEDS ORDERED: LASIX40 MG PO (13:02)
[2024-09-02] MEDS ORDERED: DICLOFENAC POTA50 MG PO (13:26)
[2024-09-02] MEDS ORDERED: HUMALOG100 UNIT/1 SUBCUTANEO (13:26)
[2024-09-02] MEDS ORDERED: LANTUS SOL100 UNIT/1 SUBCUTANEO (13:26)
[2024-09-02 17:05] VITALS: BP 125/70; O2SAT 97
== END 2024-09-02 21:40 | disposition home or self-care (01) | DRG 623 ==
LOC: ER 09:52 → MEDJ 20:41 → SEC-K 08-15 02:06 → SURH 08-15 06:28 → MEDJ 08-15 11:46
PROVIDERS: Emergency Medicine; General Practice; Internal Medicine; Specialist; ADMIT Internal Medicine Geriatric Medicine; ATTEND Internal Medicine Geriatric Medicine
PROC: 8E0ZXY6 Isolation (ICD-10-PCS; 2024-08-14)
PROC: B548ZZA Ultrasonography of Superior Vena Cava, Guidance (ICD-10-PCS; 2024-08-15)
PROC: 02HV33Z Insertion of Infusion Device into Superior Vena Cava, Percutaneous Approach (ICD-10-PCS; 2024-08-15)
PROC: BQ3FZZZ Magnetic Resonance Imaging (MRI) of Left Lower Leg (ICD-10-PCS; 2024-08-16)
PROC: BQ3DZZZ Magnetic Resonance Imaging (MRI) of Right Lower Leg (ICD-10-PCS; 2024-08-16)
PROC: 0JBQ0ZZ Excision of Right Foot Subcutaneous Tissue and Fascia, Open Approach (ICD-10-PCS; principal; 2024-08-30)
PROC: 0JBR0ZZ Excision of Left Foot Subcutaneous Tissue and Fascia, Open Approach (ICD-10-PCS; 2024-08-30)
DX: E11.621 Type 2 diabetes mellitus with foot ulcer (principal); L03.115 Cellulitis of right lower limb; M86.172 Other acute osteomyelitis, left ankle and foot; L97.528 Non-pressure chronic ulcer of other part of left foot with other specified severity; L97.418 Non-pressure chronic ulcer of right heel and midfoot with other specified severity; L03.032 Cellulitis of left toe; N17.9 Acute kidney failure, unspecified; E11.65 Type 2 diabetes mellitus with hyperglycemia; E11.51 Type 2 diabetes mellitus with diabetic peripheral angiopathy without gangrene; B96.5 Pseudomonas (aeruginosa) (mallei) (pseudomallei) as the cause of diseases classified elsewhere; B95.2 Enterococcus as the cause of diseases classified elsewhere; K59.00 Constipation, unspecified; I12.9 Hypertensive chronic kidney disease with stage 1 through stage 4 chronic kidney disease, or unspecified chronic kidney disease; N18.9 Chronic kidney disease, unspecified; E78.5 Hyperlipidemia, unspecified; G47.33 Obstructive sleep apnea (adult) (pediatric); Z79.84 Long term (current) use of oral hypoglycemic drugs; Z79.4 Long term (current) use of insulin; Z89.421 Acquired absence of other right toe(s); Z89.422 Acquired absence of other left toe(s); Z88.1 Allergy status to other antibiotic agents
CPT/HCPCS: 73221

== ENCOUNTER 2024-09-16 23:11 | Emergency (ER) | payer OTHER ==
[~2024-09-16] VITALS: Ht 180.3 cm; Wt 125.2 kg
[2024-09-16] MEDS ORDERED: CEFEPIME HCL 2,000 MG in 0.9 % SODIUM CHLORIDE 100 ML IV STA (23:49)
[2024-09-17] MEDS ORDERED: CEFEPIME HCL 2,000 MG VIAL ONE (00:01)
== END 2024-09-17 01:38 | disposition home or self-care (01) ==
LOC: ER 23:11
DX: M86.9 Osteomyelitis, unspecified (principal); T81.9XXA Unspecified complication of procedure, initial encounter; E11.9 Type 2 diabetes mellitus without complications; Z79.84 Long term (current) use of oral hypoglycemic drugs; Z88.1 Allergy status to other antibiotic agents
CPT/HCPCS: 96365; 96366; 99282; J3490

== ENCOUNTER 2024-12-06 17:47 | Inpatient (IN) | payer OTHER ==
[~2024-12-06] VITALS: Ht 170.2 cm; Wt 117.9 kg
[2024-12-06 21:35] LABS: BASO % 0.9 % (0.1-1.2); EOS # 0.10 (0.04-0.54); EOS % 1.3 % (0.7-7.0); LYMPH # 3.04 (1.18-3.74); LYMPH % 41.0 % (19.3-53.1); MEAN PLATELET VOLUME 12.50 fl (9.4-12.4); MONO # 0.70 (0.24-0.82); MONO % 9.4 % (4.7-12.5); NEUT # 3.50 (1.56-6.13); NEUT % 47.3 % (34.0-71.1); RED CELL DISTRIBUTION WIDTH 14.0 % (11.6-14.4)
[2024-12-06 21:37] LABS: ERYTHROCYTE SEDIMENTATION RATE 52 mm/hr (0-20)
[2024-12-06 21:57] LABS: INR 1.0
[2024-12-06 22:01] LABS: ALT/SGPT 39.0 U/L (12-78); AST/SGOT 27.0 U/L (15-37); BILIRUBIN TOTAL 0.54 mg/dL (0.3-1.2); BUN CREA RATIO 11.0 (7.0-25.0); CREATININE SERUM 1.63 mg/dL (0.70-1.30); GFR 43.98; GLOBULINA 5.0 G/DL (2.4-3.5); GLUCOSE FASTING 59.0 mg/dL (65-100); OSMOLALITY SERUM 283.0 MOSM/KG (275-295)
[2024-12-06] MEDS ORDERED: PIPERACILLIN/TAZOBACTAM SODIUM 3.375 GM VIAL IV ONE ×2 (22:15→22:18)
[2024-12-06] MEDS ORDERED: FAMOTIDINE/PF 20 MG in 0.9 % SODIUM CHLORIDE 8 ML IV PUSH SCH (22:26)
[2024-12-06] MEDS ORDERED: INSULIN LISPRO 1,000 UNIT/10 ML UNITS SUBCUTANEO PRN (22:30)
[2024-12-06] MEDS ORDERED: ACETAMINOPHEN 325 MG TABLET PO PRN (22:30)
[2024-12-06] MEDS ORDERED: MORPHINE SULFATE 2 MG/ML SYRINGE IV PRN (22:30)
[2024-12-06] MEDS ORDERED: DEXTROSE 50 % IN WATER 0.5 G/ML DISP.SYRIN IV PRN (22:30)
[2024-12-06] MEDS ORDERED: 0.9 % SODIUM CHLORIDE 1,000 ML IV SCH (22:30)
[2024-12-06 23:12] LABS: URINE APPEARANCE Clear; URINE BILIRRUBIN Negative (NEGATIVE); URINE BLOOD Negative; URINE COLOR Yellow; URINE KETONE Negative (NEGATIVE); URINE LEUKOCYTE Negative; URINE NITRATE Negative; URINE PROTEIN Negative (NEGATIVE); URINE UROBILINOGEN 1.0 E.U./dl
[2024-12-06 23:22] LABS: URINE BACTERIA 2.3 uL (0.0-1933); URINE CAST 0.00 uL (0.0-1.40); URINE EPITHELIAL CELLS 0.0 uL (0.0-38.8); URINE GLUCOSE >=1000 MG/DL (NEGATIVE); URINE RBC 0.4 uL (0.0-20.8); URINE WBC 0.3 uL (0.0-23.2)
[2024-12-07] MEDS ORDERED: PIPERACILLIN/TAZOBACTAM SODIUM 3.375 GM in 0.9 % SODIUM CHLORIDE 100 ML IV SCH
[2024-12-07 05:16] VITALS: BP 134/77; O2SAT 99
[2024-12-07 09:41] VITALS: BP 159/77; O2SAT 97
[2024-12-07] MEDS ORDERED: ENALAPRILAT DIHYDRATE 1.25 MG/ML VIAL IV PRN (12:00)
[2024-12-07] MEDS ORDERED: LACTOBACILLUS ACIDOPHILUS 1 CAP CAP PO SCH (17:00)
[2024-12-07] MEDS ORDERED: ENOXAPARIN SODIUM 40 MG/0.4 ML SYRINGE SUBCUTANEO SCH (17:00)
[2024-12-07] MEDS ORDERED: ROSUVASTATIN CALCIUM 20 MG TABLET PO SCH (17:00)
[2024-12-07] MEDS ORDERED: LINEZOLID IN DEXTROSE 5% 300 ML IV SCH (21:00)
[2024-12-07] MEDS ORDERED: AMPICILLIN SODIUM/SULBACTAM NA 3,000 MG in 0.9 % SODIUM CHLORIDE 100 ML IV SCH (21:00)
[2024-12-07] MEDS ORDERED: OxyCODONE HCL 5 MG TABLET (ROXICODONE) PO SCH (21:00)
[2024-12-08 00:45] VITALS: BP 116/73; O2SAT 96
[2024-12-08 07:44] LABS: BASO % 0.9 % (0.1-1.2); EOS # 0.20 (0.04-0.54); EOS % 3.0 % (0.7-7.0); LYMPH # 2.38 (1.18-3.74); LYMPH % 35.5 % (19.3-53.1); MEAN PLATELET VOLUME 11.70 fl (9.4-12.4); MONO # 0.64 (0.24-0.82); MONO % 9.5 % (4.7-12.5); NEUT # 3.42 (1.56-6.13); NEUT % 51.0 % (34.0-71.1); RED CELL DISTRIBUTION WIDTH 14.0 % (11.6-14.4)
[2024-12-08 08:58] LABS: BUN CREA RATIO 13.0 (7.0-25.0); CREATININE SERUM 1.04 mg/dL (0.70-1.30); GFR 73.87; GLUCOSE FASTING 121.0 mg/dL (65-100); OSMOLALITY SERUM 290.0 MOSM/KG (275-295); TSH 2.13 uIU/mL (0.358-3.74)
[2024-12-08] MEDS ORDERED: PATIENTS OWN MEDICATION (MEDICAMENTO EN PISO) PO SCH (09:00)
[2024-12-08] MEDS ORDERED: FOLIC ACID 1 MG TABLET PO SCH (09:00)
[2024-12-08] MEDS ORDERED: LOSARTAN POTASSIUM 100 MG TABLET PO SCH (09:00)
[2024-12-08] MEDS ORDERED: PIPERACILLIN/TAZOBACTAM SODIUM 3.375 GM in DEXTROSE 5 % IN WATER 100 ML IV SCH (12:00)
[2024-12-08] MEDS ORDERED: CHLORHEXIDINE GLUCONATE 120 ML BOTTLE TOP SCH (12:00)
[2024-12-08 16:27] VITALS: BP 146/77; O2SAT 99
[2024-12-09 01:27] VITALS: BP 142/74; O2SAT 98
[2024-12-09] MEDS ORDERED: CEFEPIME HCL 2,000 MG VIAL IV STA (09:11)
[2024-12-09 16:00] VITALS: BP 124/73; O2SAT 95
[2024-12-09] MEDS ORDERED: CEFEPIME HCL 2,000 MG VIAL IV SCH (17:00)
[2024-12-09] MEDS ORDERED: OxyCODONE HCL 5 MG TABLET (ROXICODONE) PO SCH (21:15)
[2024-12-10 01:03] VITALS: BP 113/63; O2SAT 98
[2024-12-10 08:00] VITALS: BP 144/76; O2SAT 98
[2024-12-10] MEDS ORDERED: INSULIN GLARGINE,HUM.REC.ANLOG 1,000 UNITS/10 ML UNITS SUBCUTANEO SCH (09:00)
[2024-12-10 11:46] LABS: BASO % 1.2 % (0.1-1.2); EOS # 0.18 (0.04-0.54); EOS % 3.2 % (0.7-7.0); LYMPH # 2.04 (1.18-3.74); LYMPH % 36.0 % (19.3-53.1); MEAN PLATELET VOLUME 12.30 fl (9.4-12.4); MONO # 0.53 (0.24-0.82); MONO % 9.3 % (4.7-12.5); NEUT # 2.83 (1.56-6.13); NEUT % 49.9 % (34.0-71.1); RED CELL DISTRIBUTION WIDTH 13.8 % (11.6-14.4)
[2024-12-10 12:20] LABS: BUN CREA RATIO 12.0 (7.0-25.0); CREATININE SERUM 1.03 mg/dL (0.70-1.30); GFR 74.7; GLUCOSE FASTING 153.0 mg/dL (65-100); OSMOLALITY SERUM 280.0 MOSM/KG (275-295)
[2024-12-11 02:18] VITALS: BP 100/62; O2SAT 97
[2024-12-11 11:25] VITALS: BP 128/78; O2SAT 97
[2024-12-11] MEDS ORDERED: (FF) Daptomycin 50 MG/ML IV SCH (14:00)
[2024-12-11 19:20] VITALS: BP 132/74
[2024-12-12 02:53] VITALS: BP 112/68; O2SAT 98
[2024-12-12 11:14] VITALS: BP 114/62; O2SAT 100
[2024-12-12] MEDS ORDERED: (FF) Daptomycin 50 MG/ML IV SCH (17:00)
[2024-12-13 01:33] VITALS: BP 124/69; O2SAT 98
[2024-12-13 08:27] VITALS: BP 114/76; O2SAT 98
[2024-12-13] MEDS ORDERED: OxyCODONE HCL 5 MG TABLET (ROXICODONE) PO SCH (09:00)
[2024-12-13 17:51] VITALS: BP 160/78; O2SAT 100
[2024-12-14 02:22] VITALS: BP 99/53; O2SAT 98
[2024-12-14 06:48] LABS: BASO % 1.2 % (0.1-1.2); EOS # 0.19 (0.04-0.54); EOS % 3.3 % (0.7-7.0); LYMPH # 2.38 (1.18-3.74); LYMPH % 41.4 % (19.3-53.1); MEAN PLATELET VOLUME 12.30 fl (9.4-12.4); MONO # 0.59 (0.24-0.82); MONO % 10.3 % (4.7-12.5); NEUT # 2.51 (1.56-6.13); NEUT % 43.6 % (34.0-71.1); RED CELL DISTRIBUTION WIDTH 13.8 % (11.6-14.4)
[2024-12-14 07:21] LABS: ALT/SGPT 59 U/L (12-78); AST/SGOT 55 U/L (15-37); BILIRUBIN TOTAL 0.31 mg/dL (0.3-1.2); BUN CREA RATIO 24 (7.0-25.0); CREATININE SERUM 0.92 mg/dL (0.70-1.30); GFR 85.10; GLOBULINA 3.3 G/DL (2.4-3.5); GLUCOSE FASTING 167 mg/dL (65-100); OSMOLALITY SERUM 287 MOSM/KG (275-295)
[2024-12-14 08:41] VITALS: BP 110/64; O2SAT 98
[2024-12-14 18:10] VITALS: BP 114/73; O2SAT 96
[2024-12-15 02:45] VITALS: BP 109/70; O2SAT 97
[2024-12-15] MEDS ORDERED: INSULIN LISPRO 1,000 UNIT/10 ML UNITS SUBCUTANEO SCH (08:00)
[2024-12-15] MEDS ORDERED: METRONIDAZOLE/SODIUM CHLORIDE 500 MG/100 ML PIGGYBACK IV SCH (09:00)
[2024-12-15] MEDS ORDERED: OxyCODONE HCL 5 MG TABLET (ROXICODONE) PO SCH (09:20)
[2024-12-15 10:08] VITALS: BP 113/74; O2SAT 98
[2024-12-15 18:29] VITALS: BP 126/62; O2SAT 97
[2024-12-16 02:34] VITALS: BP 125/82; O2SAT 98
[2024-12-16 10:40] VITALS: BP 136/78; O2SAT 97
[2024-12-16 18:18] VITALS: BP 130/70; O2SAT 100
[2024-12-17 02:32] VITALS: BP 123/67; O2SAT 97
[2024-12-17 10:24] VITALS: BP 129/75; O2SAT 98
[2024-12-17] MEDS ORDERED: MECLIZINE HCL 12.5 MG TABLET PO STA (12:57)
[2024-12-17] MEDS ORDERED: MECLIZINE HCL 12.5 MG TABLET PO PRN (13:00)
[2024-12-17 13:56] LABS: BASO % 1.5 % (0.1-1.2); EOS # 0.20 (0.04-0.54); EOS % 3.4 % (0.7-7.0); LYMPH # 2.81 (1.18-3.74); LYMPH % 47.1 % (19.3-53.1); MEAN PLATELET VOLUME 12.40 fl (9.4-12.4); MONO # 0.57 (0.24-0.82); MONO % 9.6 % (4.7-12.5); NEUT # 2.27 (1.56-6.13); NEUT % 38.1 % (34.0-71.1); RED CELL DISTRIBUTION WIDTH 14.1 % (11.6-14.4)
[2024-12-17 14:05] LABS: ERYTHROCYTE SEDIMENTATION RATE 82 mm/hr (0-20)
[2024-12-17 14:33] LABS: ALT/SGPT 56 U/L (12-78); AST/SGOT 39 U/L (15-37); BILIRUBIN TOTAL 0.24 mg/dL (0.3-1.2); BUN CREA RATIO 25 (7.0-25.0); CREATININE SERUM 0.89 mg/dL (0.70-1.30); GFR 88.42; GLOBULINA 3.8 G/DL (2.4-3.5); GLUCOSE FASTING 171 mg/dL (65-100); OSMOLALITY SERUM 290 MOSM/KG (275-295)
[2024-12-17 18:21] VITALS: BP 134/72
[2024-12-17] MEDS ORDERED: OxyCODONE HCL 5 MG TABLET (ROXICODONE) PO SCH (21:45)
[2024-12-18 02:45] VITALS: BP 136/75; O2SAT 97
[2024-12-18 09:32] VITALS: BP 123/73; O2SAT 97
[2024-12-18 19:35] VITALS: BP 145/70
[2024-12-19 01:26] VITALS: BP 154/71; O2SAT 97
[2024-12-19 10:18] VITALS: BP 106/63; O2SAT 96
[2024-12-19 22:28] VITALS: BP 122/64
[2024-12-20 01:20] VITALS: BP 145/77; O2SAT 97
[2024-12-20 06:28] LABS: BASO % 1.2 % (0.1-1.2); EOS # 0.19 (0.04-0.54); EOS % 3.1 % (0.7-7.0); LYMPH # 3.11 (1.18-3.74); LYMPH % 51.2 % (19.3-53.1); MEAN PLATELET VOLUME 11.70 fl (9.4-12.4); MONO # 0.68 (0.24-0.82); MONO % 11.2 % (4.7-12.5); NEUT # 2.01 (1.56-6.13); NEUT % 33.1 % (34.0-71.1); RED CELL DISTRIBUTION WIDTH 14.0 % (11.6-14.4)
[2024-12-20 06:53] LABS: ERYTHROCYTE SEDIMENTATION RATE 72 mm/hr (0-20)
[2024-12-20 06:58] LABS: ALT/SGPT 47.0 U/L (12-78); AST/SGOT 35.0 U/L (15-37); BILIRUBIN TOTAL 0.41 mg/dL (0.3-1.2); BUN CREA RATIO 30.0 (7.0-25.0); CREATININE SERUM 0.87 mg/dL (0.70-1.30); GFR 90.77; GLOBULINA 3.7 G/DL (2.4-3.5); GLUCOSE FASTING 126.0 mg/dL (65-100); OSMOLALITY SERUM 288.0 MOSM/KG (275-295)
[2024-12-20 09:43] VITALS: BP 106/77; O2SAT 98
[2024-12-20 17:58] VITALS: BP 105/56; O2SAT 98
[2024-12-20] MEDS ORDERED: OxyCODONE HCL 5 MG TABLET (ROXICODONE) PO SCH (21:00)
[2024-12-21 03:24] VITALS: BP 112/69; O2SAT 98
[2024-12-21 08:41] VITALS: BP 105/67; O2SAT 99
[2024-12-21 17:13] VITALS: BP 109/67; O2SAT 97
[2024-12-22 02:46] VITALS: BP 108/72; O2SAT 98
[2024-12-22 08:54] VITALS: BP 127/72; O2SAT 97
[2024-12-22 17:54] VITALS: BP 113/66
[2024-12-23 03:19] VITALS: BP 95/55; O2SAT 98
[2024-12-23 18:43] VITALS: BP 100/56; O2SAT 98
[2024-12-24 03:42] VITALS: BP 121/76
[2024-12-24 06:16] LABS: BASO % 1.7 % (0.1-1.2); EOS # 0.19 (0.04-0.54); EOS % 3.0 % (0.7-7.0); LYMPH # 3.23 (1.18-3.74); LYMPH % 50.3 % (19.3-53.1); MEAN PLATELET VOLUME 12.50 fl (9.4-12.4); MONO # 0.69 (0.24-0.82); MONO % 10.7 % (4.7-12.5); NEUT # 2.19 (1.56-6.13); NEUT % 34.1 % (34.0-71.1); RED CELL DISTRIBUTION WIDTH 14.4 % (11.6-14.4)
[2024-12-24 06:48] LABS: ALT/SGPT 46 U/L (12-78); AST/SGOT 35 U/L (15-37); BILIRUBIN TOTAL 0.31 mg/dL (0.3-1.2); BUN CREA RATIO 24 (7.0-25.0); CREATININE SERUM 1.01 mg/dL (0.70-1.30); GFR 76.41; GLOBULINA 4.5 G/DL (2.4-3.5); GLUCOSE FASTING 121 mg/dL (65-100); OSMOLALITY SERUM 287 MOSM/KG (275-295)
[2024-12-24 06:49] LABS: ERYTHROCYTE SEDIMENTATION RATE 44 mm/hr (0-20)
[2024-12-24] MEDS ORDERED: INSULIN LISPRO 1,000 UNIT/10 ML UNITS SUBCUTANEO SCH (08:00)
[2024-12-24 09:26] VITALS: BP 105/65; O2SAT 97
[2024-12-24 18:34] VITALS: BP 138/72; O2SAT 95
[2024-12-25 04:12] VITALS: BP 111/73; O2SAT 98
[2024-12-25 10:15] VITALS: BP 110/65; O2SAT 98
[2024-12-25 18:23] VITALS: BP 141/85
[2024-12-25] MEDS ORDERED: ORPHENADRINE CITRATE 30 MG/ML AMPUL IM SCH (21:00)
[2024-12-26 02:30] VITALS: BP 117/76; O2SAT 97
[2024-12-26 10:26] VITALS: BP 125/72; O2SAT 98
[2024-12-26 18:32] VITALS: BP 137/72
[2024-12-27 02:36] VITALS: BP 144/70
[2024-12-27 08:43] VITALS: BP 106/65; O2SAT 96
[2024-12-27 18:17] VITALS: BP 133/51
[2024-12-28 02:35] VITALS: BP 125/71; O2SAT 97
[2024-12-28 06:44] LABS: BASO % 1.3 % (0.1-1.2); EOS # 0.24 (0.04-0.54); EOS % 4.0 % (0.7-7.0); LYMPH # 2.82 (1.18-3.74); LYMPH % 47.2 % (19.3-53.1); MEAN PLATELET VOLUME 12.40 fl (9.4-12.4); MONO # 0.59 (0.24-0.82); MONO % 9.9 % (4.7-12.5); NEUT # 2.24 (1.56-6.13); NEUT % 37.4 % (34.0-71.1); RED CELL DISTRIBUTION WIDTH 14.3 % (11.6-14.4)
[2024-12-28 06:53] LABS: ERYTHROCYTE SEDIMENTATION RATE 53 mm/hr (0-20)
[2024-12-28 07:05] LABS: ALT/SGPT 42 U/L (12-78); AST/SGOT 29 U/L (15-37); BILIRUBIN TOTAL 0.38 mg/dL (0.3-1.2); BUN CREA RATIO 24 (7.0-25.0); CREATININE SERUM 0.94 mg/dL (0.70-1.30); GFR 83.02; GLOBULINA 3.8 G/DL (2.4-3.5); GLUCOSE FASTING 92 mg/dL (65-100); OSMOLALITY SERUM 285 MOSM/KG (275-295)
[2024-12-28 09:22] VITALS: BP 111/63; O2SAT 98
[2024-12-28 18:04] VITALS: BP 158/72
[2024-12-29 02:50] VITALS: BP 106/70; O2SAT 100
[2024-12-29 09:07] VITALS: BP 148/80; O2SAT 97
[2024-12-29 18:05] VITALS: BP 130/65
[2024-12-30 01:56] VITALS: BP 111/73; O2SAT 99
[2024-12-30 08:59] VITALS: BP 110/60; O2SAT 97
[2024-12-30 16:01] LABS: BASO % 1.5 % (0.1-1.2); EOS # 0.23 (0.04-0.54); EOS % 3.8 % (0.7-7.0); LYMPH # 2.69 (1.18-3.74); LYMPH % 43.9 % (19.3-53.1); MEAN PLATELET VOLUME 12.80 fl (9.4-12.4); MONO # 0.65 (0.24-0.82); MONO % 10.6 % (4.7-12.5); NEUT # 2.42 (1.56-6.13); NEUT % 39.4 % (34.0-71.1); RED CELL DISTRIBUTION WIDTH 14.6 % (11.6-14.4)
[2024-12-30 16:10] LABS: COVID-19 AG NEGATIVE (NEGATIVE)
[2024-12-30 16:24] LABS: BUN CREA RATIO 26.0 (7.0-25.0); CREATININE SERUM 0.91 mg/dL (0.70-1.30); GFR 86.18; GLUCOSE FASTING 135.0 mg/dL (65-100); OSMOLALITY SERUM 287.0 MOSM/KG (275-295); PHOSPHOKINASE CREATININE 265.0 U/L (39-308)
[2024-12-30] MEDS ORDERED: METRONIDAZOLE/SODIUM CHLORIDE 500 MG/100 ML PIGGYBACK IV SCH (17:00)
[2024-12-30] MEDS ORDERED: ORPHENADRINE CITRATE 100 MG TABLET PO SCH (21:00)
[2024-12-30 21:07] VITALS: BP 118/73; O2SAT 96
[2024-12-31 02:00] VITALS: BP 100/60; O2SAT 98
[2024-12-31 09:35] VITALS: BP 96/60; O2SAT 96
[2024-12-31] MEDS ORDERED: LOSARTAN POTAS100 MG PO (10:54)
[2024-12-31] MEDS ORDERED: FOLIC ACID1 MG PO (10:54)
[2024-12-31] MEDS ORDERED: ROSUVASTATIN CA20 MG PO (10:54)
[2024-12-31] MEDS ORDERED: UROXATRAL10 MG PO (10:54)
[2024-12-31] MEDS ORDERED: DULOXETINE HCL60 MG PO (10:54)
[2024-12-31] MEDS ORDERED: NORFLEX100MG PO (10:54)
[2024-12-31] MEDS ORDERED: OXYCODONE HCL5 MG PO (10:54)
[2024-12-31] MEDS ORDERED: LASIX40 MG PO (10:54)
[2024-12-31] MEDS ORDERED: LYRICA50 MG PO (10:54)
[2024-12-31] MEDS ORDERED: INTESTINEX680 M1 PO (10:54)
[2024-12-31] MEDS ORDERED: GABAPENTIN400 MG PO (10:54)
[2024-12-31] MEDS ORDERED: duloxetine PO (10:54)
== END 2024-12-31 15:19 | disposition designated cancer center or children's hospital (05) | DRG 638 ==
LOC: ER 17:48 → MEDI 22:20 → SURG 12-07 05:00 → SURH 12-07 16:02 → MEDJ 12-10 15:08
PROVIDERS: General Practice; Internal Medicine; ADMIT Internal Medicine Geriatric Medicine; ATTEND Internal Medicine Geriatric Medicine
PROC: 0HBMXZZ Excision of Right Foot Skin, External Approach (ICD-10-PCS; principal; 2024-12-07)
PROC: 0HBNXZZ Excision of Left Foot Skin, External Approach (ICD-10-PCS; 2024-12-07)
PROC: BQ3FZZZ Magnetic Resonance Imaging (MRI) of Left Lower Leg (ICD-10-PCS; 2024-12-08)
PROC: 02HV33Z Insertion of Infusion Device into Superior Vena Cava, Percutaneous Approach (ICD-10-PCS; 2024-12-08)
DX: E11.622 Type 2 diabetes mellitus with other skin ulcer (principal); M86.9 Osteomyelitis, unspecified; L97.519 Non-pressure chronic ulcer of other part of right foot with unspecified severity; Z79.4 Long term (current) use of insulin; I10 Essential (primary) hypertension; G62.9 Polyneuropathy, unspecified; N17.9 Acute kidney failure, unspecified; E66.9 Obesity, unspecified